=== PATIENT | male | born 1955 | race Two or more races ===

== ENCOUNTER 2021-09-07 13:20 | Outpatient (CLI) | payer MEDICARE, OTHER | END 2021-09-07 23:59 | disposition home health service (06) | LOC: WOU 13:20 | PROVIDERS: ATTEND Podiatrist Foot & Ankle Surgery | DX: S93.11 Dislocation of interphalangeal joint (principal); X58.XXXD Exposure to other specified factors, subsequent encounter; E11.22 Type 2 diabetes mellitus with diabetic chronic kidney disease; E11.42 Type 2 diabetes mellitus with diabetic polyneuropathy; I12.0 Hypertensive chronic kidney disease with stage 5 chronic kidney disease or end stage renal disease; N18.6 End stage renal disease; Z99.2 Dependence on renal dialysis; Z87.891 Personal history of nicotine dependence; R60.0 Localized edema; Z98.890 Other specified postprocedural states | CPT/HCPCS: G0463 ==

== ENCOUNTER 2021-09-20 11:53 | Outpatient (CLI) | payer MEDICARE, OTHER ==
[2021-09-20] MEDS ORDERED: GENTAMICIN 0.1% CREAM 15 GM TUBE ONE (13:08)
[2021-09-20] MEDS ORDERED: MUPIROCIN 2% CREAM 15 GM TUBE TP ONE (13:08)
== END 2021-09-20 23:59 | disposition home health service (06) ==
LOC: WOU 11:53
PROVIDERS: ATTEND Podiatrist Foot & Ankle Surgery
DX: T81.31XA Disruption of external operation (surgical) wound, not elsewhere classified, initial encounter (principal); T86.821 Skin graft (allograft) (autograft) failure; E11.22 Type 2 diabetes mellitus with diabetic chronic kidney disease; E11.42 Type 2 diabetes mellitus with diabetic polyneuropathy; I12.0 Hypertensive chronic kidney disease with stage 5 chronic kidney disease or end stage renal disease; N18.6 End stage renal disease; Z99.2 Dependence on renal dialysis; Z79.01 Long term (current) use of anticoagulants; Z79.82 Long term (current) use of aspirin
CPT/HCPCS: 11043

== ENCOUNTER 2021-10-19 13:30 | Outpatient (CLI) | payer MEDICARE, OTHER ==
[2021-10-19] MEDS ORDERED: MUPIROCIN 2% CREAM 15 GM TUBE TP ONE (14:23)
== END 2021-10-19 23:59 | disposition home health service (06) ==
LOC: WOU 13:30
PROVIDERS: ATTEND Podiatrist Foot & Ankle Surgery
DX: E11.621 Type 2 diabetes mellitus with foot ulcer (principal); L97.515 Non-pressure chronic ulcer of other part of right foot with muscle involvement without evidence of necrosis; E11.42 Type 2 diabetes mellitus with diabetic polyneuropathy; E11.22 Type 2 diabetes mellitus with diabetic chronic kidney disease; N18.6 End stage renal disease; Z99.2 Dependence on renal dialysis; T86.821 Skin graft (allograft) (autograft) failure; T81.31XA Disruption of external operation (surgical) wound, not elsewhere classified, initial encounter; Z79.01 Long term (current) use of anticoagulants; Z79.899 Other long term (current) drug therapy
CPT/HCPCS: 11042

== ENCOUNTER 2021-10-26 14:00 | Outpatient (CLI) | payer MEDICARE, OTHER ==
[2021-10-26] MEDS ORDERED: MUPIROCIN 2% CREAM 15 GM TUBE TP ONE (14:44)
[2021-10-26] MEDS ORDERED: GENTAMICIN 0.1% CREAM 15 GM TUBE ONE (14:44)
[2021-10-26 17:02] LABS: BASOPHILS # (AUTO) 0.3 K/uL (0.0-0.2); EOSINOPHILS % (AUTO) 11.2 % (0.0-6.0); HEMATOCRIT 32 % (39-51); HEMOGLOBIN 10.2 g/dL (13.5-17.5); LYMPHOCYTES # (AUTO) 1.4 K/uL (0.8-4.8); LYMPHOCYTES % (AUTO) 14.8 % (20.0-44.0); MEAN CORPUSCULAR HGB CONC 32 g/dl (31.0-36.0); MEAN CORPUSCULAR VOLUME 84 fL (80-96); MONOCYTES # (AUTO) 1.1 K/uL (0.1-1.30); MONOCYTES % (AUTO) 11.8 % (2.0-12.0); NEUTROPHILS # (AUTO) 5.5 K/uL (1.8-8.9); NEUTROPHILS % (AUTO) 59.2 % (43.0-81.0); PLATELET COUNT (AUTO) 226 K/uL (150-450); RED BLOOD CELL COUNT(AUTO) 3.75 MIL/uL (4.5-6.0); WHITE BLOOD COUNT (AUTO) 9.3 K/uL (4.3-11.0)
== END 2021-10-26 23:59 | disposition home health service (06) ==
LOC: WOU 14:00
PROVIDERS: ATTEND Podiatrist Foot & Ankle Surgery
DX: T81.31XA Disruption of external operation (surgical) wound, not elsewhere classified, initial encounter (principal); T86.821 Skin graft (allograft) (autograft) failure; E11.621 Type 2 diabetes mellitus with foot ulcer; L97.512 Non-pressure chronic ulcer of other part of right foot with fat layer exposed; E11.22 Type 2 diabetes mellitus with diabetic chronic kidney disease; E11.42 Type 2 diabetes mellitus with diabetic polyneuropathy; I12.0 Hypertensive chronic kidney disease with stage 5 chronic kidney disease or end stage renal disease; N18.6 End stage renal disease; Z99.2 Dependence on renal dialysis; Z87.891 Personal history of nicotine dependence; Z79.82 Long term (current) use of aspirin; Z79.01 Long term (current) use of anticoagulants
CPT/HCPCS: 11042; 36415; 85025-TC; 85652-TC; 86140-TC

== ENCOUNTER 2021-11-02 13:15 | Outpatient (CLI) | payer MEDICARE, OTHER ==
[2021-11-02] MEDS ORDERED: MUPIROCIN 2% CREAM 15 GM TUBE TP ONE (14:08)
[2021-11-02] MEDS ORDERED: GENTAMICIN 0.1% CREAM 15 GM TUBE ONE (14:09)
== END 2021-11-02 23:59 | disposition home health service (06) ==
LOC: WOU 13:15
PROVIDERS: ATTEND Podiatrist Foot & Ankle Surgery
DX: T81.31XA Disruption of external operation (surgical) wound, not elsewhere classified, initial encounter (principal); T86.821 Skin graft (allograft) (autograft) failure; E11.22 Type 2 diabetes mellitus with diabetic chronic kidney disease; E11.42 Type 2 diabetes mellitus with diabetic polyneuropathy; E11.621 Type 2 diabetes mellitus with foot ulcer; I12.0 Hypertensive chronic kidney disease with stage 5 chronic kidney disease or end stage renal disease; N18.6 End stage renal disease; Z99.2 Dependence on renal dialysis; Z87.891 Personal history of nicotine dependence; L97.515 Non-pressure chronic ulcer of other part of right foot with muscle involvement without evidence of necrosis; Z79.01 Long term (current) use of anticoagulants; Z79.899 Other long term (current) drug therapy
CPT/HCPCS: 11043

== ENCOUNTER 2021-11-07 10:30 | Outpatient (CLI) | payer MEDICARE, OTHER | END 2021-11-07 23:59 | disposition home or self-care (01) | LOC: RAD 10:30 | PROVIDERS: ATTEND Podiatrist Foot & Ankle Surgery | DX: M19.071 Primary osteoarthritis, right ankle and foot (principal); M86.8X7 Other osteomyelitis, ankle and foot | CPT/HCPCS: 73630-TC ==

== ENCOUNTER 2021-11-08 04:47 | Inpatient (IN) | payer MEDICARE, OTHER ==
[~2021-11-08] VITALS: Ht 167.6 cm; Wt 61.7 kg
[2021-11-08] VITALS (23 sets, daily range): BP systolic 143–218; BP diastolic 63–108
--- NOTE | 2021-11-08 05:28 | NUR ---
lab at bedside
--- NOTE | 2021-11-08 05:28 | NUR ---
ekg at bedside
--- NOTE | 2021-11-08 05:51 | NUR ---
radiology at bedside
[2021-11-08 06:01] LABS: BASOPHILS # (AUTO) 0.1 K/uL (0.0-0.2); BASOPHILS % (AUTO) 0.7 % (0.0-2.0); EOSINOPHILS % (AUTO) 0.4 % (0.0-6.0); HEMATOCRIT 29 % (39-51); HEMOGLOBIN 9.6 g/dL (13.5-17.5); LYMPHOCYTES # (AUTO) 0.5 K/uL (0.8-4.8); LYMPHOCYTES % (AUTO) 4.6 % (20.0-44.0); MEAN CORPUSCULAR HGB CONC 33 g/dl (31.0-36.0); MEAN CORPUSCULAR VOLUME 82 fL (80-96); MONOCYTES # (AUTO) 0.9 K/uL (0.1-1.30); MONOCYTES % (AUTO) 8.2 % (2.0-12.0); NEUTROPHILS # (AUTO) 9.3 K/uL (1.8-8.9); NEUTROPHILS % (AUTO) 86.1 % (43.0-81.0); PLATELET COUNT (AUTO) 334 K/uL (150-450); RED BLOOD CELL COUNT(AUTO) 3.54 MIL/uL (4.5-6.0); WHITE BLOOD COUNT (AUTO) 10.8 K/uL (4.3-11.0)
[2021-11-08 06:13] LABS: MAGNESIUM 3.1 mg/dL (1.8-2.4); PHOSPHORUS 6.6 mg/dL (2.5-4.9)
[2021-11-08 06:24] LABS: ALANINE AMINOTRANSFERASE 21 U/L (12-78); ALBUMIN 3.1 g/dL (3.4-5.0); ALKALINE PHOSPHATASE 148 U/L (46-116); ASPARTATE AMINOTRANSFERASE 17 U/L (15-37); BILIRUBIN,DIRECT 0.2 mg/dL (0.0-0.2); BILIRUBIN,TOTAL 0.5 mg/dL (0.2-1.0); CALCIUM, SERUM 8.2 mg/dL (8.5-10.1); CARBON DIOXIDE 17 mmol/L (21-32); CHLORIDE 96 mmol/L (98-107); GLUCOSE 185 mg/dL (74-106); SODIUM SERUM 132 mmol/L (136-145); TOTAL PROTEIN, SERUM 8.5 g/dL (6.4-8.2)
[2021-11-08 06:31] LABS: CREATININE 16.9 mg/dL (0.6-1.3); POTASSIUM 9.2 mmol/L (3.5-5.1); UREA NITROGEN, BLOOD 113 mg/dL (7-18)
[2021-11-08] MEDS ORDERED: CALCIUM CHLORIDE 1,000 MG/10 ML DISP.SYRIN ONE (06:37)
[2021-11-08] MEDS ORDERED: DEXTROSE 50%-WATER 50 ML DISP.SYRIN ONE ×2 (06:38→08:49)
[2021-11-08] MEDS ORDERED: SODIUM BICARBONATE SYR 50 MEQ/50 ML DISP.SYRIN ONE (06:38)
[2021-11-08] MEDS ORDERED: SODIUM POLYSTYRENE SULFONATE 15 G/60 ML BOTTLE ONE (06:39)
[2021-11-08] MEDS ORDERED: INSULIN REGULAR, HUMAN 100 UNIT/ML 10 ML VIAL ONE (06:40)
--- NOTE | 2021-11-08 06:44 | NUR ---
MRSA SWAB COLLECTED AND SENT TO LAB. PATIENT'S BELONGINGS LIST DONE.
[2021-11-08] MEDS ORDERED: SODIUM BICARBONATE SYR 50 MEQ/50 ML DISP.SYRIN IV ONE (07:00)
[2021-11-08] MEDS ORDERED: CALCIUM CHLORIDE 1,000 MG/10 ML DISP.SYRIN IV ONE (07:00)
[2021-11-08] MEDS ORDERED: DEXTROSE 50%-WATER 50 ML DISP.SYRIN IV ONE (07:00)
[2021-11-08] MEDS ORDERED: ALBUTEROL FS 2.5 MG/3 ML VIAL.NEB NEB ONE (07:00)
[2021-11-08] MEDS ORDERED: INSULIN REGULAR, HUMAN 100 UNIT/ML 10 ML VIAL IV ONE (07:00)
[2021-11-08] MEDS ORDERED: SODIUM POLYSTYRENE SULFONATE 15 G/60 ML BOTTLE PO ONE (07:00)
[2021-11-08] MEDS ORDERED: ALBUTEROL FS 2.5 MG/3 ML VIAL.NEB ONE (07:09)
[2021-11-08] MEDS: DEXTROSE 50%-WATER 50 ML DISP.SYRIN IV ONE (08:34)
[2021-11-08] MEDS ORDERED: ZOLPIDEM TARTRATE 5 MG TABLET PO PRN (09:00)
[2021-11-08] MEDS ORDERED: MAG HYDROX/AL HYDROX/SIMETH 30 ML UDC PO PRN (09:00)
[2021-11-08] MEDS ORDERED: MAGNESIUM HYDROXIDE 30 ML UDC PO PRN (09:00)
[2021-11-08] MEDS ORDERED: ONDANSETRON HCL/PF 4 MG/2 ML VIAL IVP PRN (09:00)
[2021-11-08] MEDS ORDERED: DEXTROSE 50%-WATER 50 ML DISP.SYRIN IV PRN (09:00)
[2021-11-08] MEDS: PANTOPRAZOLE 40 MG TABLET.DR PO SCH (09:00)
[2021-11-08] MEDS ORDERED: HYDROCODONE/APAP 5/325MG TABLET PO PRN (09:00)
[2021-11-08] MEDS ORDERED: MORPHINE SULFATE INJ 2 MG/ML DISP.SYRIN IV PRN (09:00)
[2021-11-08] MEDS ORDERED: Z GUARD REMEDY 4 OZ OINT TP PRN (09:00)
--- NOTE | 2021-11-08 09:02 | NUR ---
GOT ICU BED 259
--- NOTE | 2021-11-08 09:16 | NUR ---
CALLED ICU TO GIVE REPORT AND WAS TOLD TO CALL BACK AT 0930
[2021-11-08] MEDS ORDERED: VANCOMYCIN 1 GM in IV D5W 250ml IV ONE (09:30)
--- NOTE | 2021-11-08 09:30 | NUR ---
CALL FROM EVITA MATHIAS SUP, WANTS TX DELAYED UNTIL WE HEAR FROM HER
--- NOTE | 2021-11-08 09:46 | NUR ---
report give to cheng for mando
--- NOTE | 2021-11-08 10:15 | NUR ---
SENIOR GAME DESIGNER RECEIVED PT FROM ER. REPORT RECEIVED. PT AROUSEABLE, FOLLOWS SOME COMMANDS. CONFUSED. UNABLE TO STATE WHERE HE RECEIVES DIALYSIS OR WHY HE MISSED HIS APPOINTMENTS. PT UNABLE TO SIGN CONSENT FOR DIALYSIS DUE TO CONFUSION. IV SITES X 2 IN RIGHT FOREARM. SHUNT IN LEFT UPPER ARM. PT CLEANED OF STOOL AND URINE. CLOTHING EXTENSIVELY SOILED, REMOVED AND DISCARDED IN TRASHBIN. NO BELONGINGS WITH PT.
--- NOTE | 2021-11-08 12:00 | NUR ---
CREW SCHEDULER NOTE RECEIVED PT FROM CHARGE NURSE, PT IS CONFUSED, AO X 2, ON HEMODIALYSIS THIS TIME, 2L NC, SATURATION 99%. PT ON TELE MONITOR SINUS TACH 101HR, 2 HEP LOCK INTACT AND FLUSHING WELL. BS IS 87 MG\DL, NPO AT THIS TIME EXCEPT FOR MEDS, VS TAKEN, BODY ASSESSMENT DONE, CALL LIGHT WITHIN REACH, BED AT LOWEST POSITION, NO SOB NOTED THIS TIME, WILL CONTINUE TO MONITOR.
[2021-11-08] MEDS: HEPARIN SODIUM, PORCINE 5000 UNITS/1 ML VIAL SQ SCH ×2 (12:31→22:03)
[2021-11-08] MEDS ORDERED: EPOETIN ALFA (10,000 UNIT) 10,000 UNIT/ML VIAL IV ONE (13:00)
--- NOTE | 2021-11-08 13:00 | NUR ---
SOLE LAYER HAND NOTE DR LOUIS AT BEDSIDE ASKED ABOUT AND PNA VACCINE STATED NO VACCINES AT THIS TIME
[2021-11-08] MEDS: BLOOD SUGAR DIAGNOSTIC 1 EACH STRIP IN SCH ×3 (13:35→22:00)
--- NOTE | 2021-11-08 13:45 | NUR ---
PRIVATE PILOT Notes DOCTOR HIEN NOTIFIED THAT PT BP 217/97, NO ORDERS FOR BP MEDS, STATED ORDER WILL BE PLACED. HEMODIALYSIS COMPLETE, 3L IS OUT. WILL FOLLOW-UP.
[2021-11-08] MEDS: PIPERACILLIN /TAZOBACTAM 2.25 G in IV D5W 50 ML IV SCH ×2 (14:15→22:00)
[2021-11-08] MEDS ORDERED: hydrALAZINE HCL IV 20 MG VIAL IV PRN (14:30)
[2021-11-08] MEDS: AMLODIPINE BESYLATE 10 MG TABLET PO SCH (14:41)
--- NOTE | 2021-11-08 15:21 | NUR ---
RECYCLING MANAGER NOTES DOCTOR HIEN NOTIFIED, PT SINUS TACH 135 TO 150 HR, STATED THAT HE WILL PLACE ORDER FOR THE HEART RATE.
[2021-11-08 15:53] LABS: CALCIUM, SERUM 8.9 mg/dL (8.5-10.1); POTASSIUM 3.8 mmol/L (3.5-5.1)
[2021-11-08] MEDS ORDERED: LORAZEPAM INJ 2 MG/ML VIAL IV PRN (16:00)
--- NOTE | 2021-11-08 16:00 | NUR ---
SOAPING DEPARTMENT SUPERVISOR NOTES\ PATIENT HEART RATE IS 144 BPM, DR. STANFORD NOTIFIED. PATIENT CONSISTENTLY TRIES TO GET OUT OF BED PUTTING PT AT RISK FOR FALLING, ORDERED ATIVAN PRN. WILL CONTINUE TO MONITOR.
--- NOTE | 2021-11-08 16:17 | NUR ---
VIDEO PRESENTATION OPERATOR NOTE ASSITED TO BSC, ABLE TO MAKE BM , KEEP CLEAN DRY , ALL NEEDS ATTENDED, WILL CONT TO MONITOR HR AT THIS TIME 115
[2021-11-08 16:21] LABS: CREATININE 8.9 mg/dL (0.6-1.3)
[2021-11-08] MEDS: METOPROLOL TARTRATE 50 MG TABLET PO SCH ×2 (16:22→22:00)
--- NOTE | 2021-11-08 16:34 | NUR ---
agricultural engineering technicians note k 3.8 at this time creat 8.6 trending down , will cont to monitor but now noted on tele monitor afib , ordered ekg stat, rt notified
--- NOTE | 2021-11-08 16:45 | NUR ---
WALLPAPER SCRAPER NOTE NOTED ONE EPISODE OF AFIB, HR 159, NO COMPLAINTS OF CHEST PAIN, DR. STANFORD NOTIFIED. STATED WILL ORDER BMP, WILL FOLLOW-UP.
--- NOTE | 2021-11-08 18:15 | NUR ---
METAL BOX MAKER NOTE BP 185/88, DR. STANFORD NOTIFIED, NO NEW ORDERS GIVEN AT THIS TIME. WILL CONTINUE TO MONITOR.
--- NOTE | 2021-11-08 19:15 | NUR ---
SCALE OPERATORPRODUCTION MATERIAL COORDINATOR NOTE PATIENT WAS RECEIVED FROM THE ICU. A/0X3. PATIENT IS STABLE. NO S/S OF DISTRESS; BREATHING SYMMETRICAL. RT ARM #20 & #18G PATENT. LEFT ARM TO NOT BE TOUCHED FOR BLOOD DRAW OR BP. PATIENT WAS GIVEN CALL URIBE AND INSTRUCTED ON ITS USE; PATIENT WAS ORIENTED TO THE UNIT. BELONGINGS ACCOUNTED FOR AND LOGGED. SAFETY MEASURES IN PLACE: BED AT LOWEST POSITION, RAILS UP X2, CALL URIBE WITHIN REACH. WILL CONTINUE TO MONITOR PATIENT THROUGHOUT SHIFT.
--- NOTE | 2021-11-08 19:28 | NUR ---
PASTE MIXER NOTES PATIENT WAS TRANSFERRED TO TELE UNIT IN STABLE CONDITION BY ACLS PROTOCOL BY BED, MEDICATIONS, CHART AND REPORT GIVEN TO BELGICA GONSALEZ.
[2021-11-08 20:27] LABS: CALCIUM, SERUM 8.2 mg/dL (8.5-10.1); POTASSIUM 5.5 mmol/L (3.5-5.1)
[2021-11-08 22:14] LABS: CREATININE 10.1 mg/dL (0.6-1.3)
[2021-11-08] MEDS: ACETAMINOPHEN 325 MG TABLET PO PRN (23:08)
[2021-11-09] MEDS: PIPERACILLIN /TAZOBACTAM 2.25 G in IV D5W 50 ML IV SCH ×3 (05:17→21:33)
[2021-11-09] MEDS: INSULIN REGULAR, HUMAN 100 UNIT/ML 3 ML VIAL SQ PRN ×3 (06:17→22:18)
--- NOTE | 2021-11-09 06:33 | NUR ---
LABORER GOLF COURSE CLOSING NOTE PATIENT IS ASLEEP IN BED. A/OX4. NO S/S OF DISTRESS, BREATHING SYMMETRICAL. CAP REFILL <3SECS. DRY CELL AND BATTERY ASSEMBLER REPORTS SR 63. SAFETY MEASURES IN PLACE: BED AT LOWEST POSITION, RAILS UP X2, CALL URIBE WITHIN REACH. WILL ENDORSE TO NEXT SHIFT FOR MYRA.
[2021-11-09] MEDS: BLOOD SUGAR DIAGNOSTIC 1 EACH STRIP IN SCH ×4 (06:46→22:06)
[2021-11-09] MEDS ORDERED: VANCOMYCIN POST DIALYSIS 500MG IV PRN (07:00)
--- NOTE | 2021-11-09 07:47 | NUR ---
RN Note Patient received in bed, AO x 3-4, able to responds all stimuli. Respiratory even and unlabored with oxygen at 3Ls via NC, no SOB observed. Skin is warm to touch, keep clean/dry. Patient does no appears pain or discomfort this morning. BS 91mg/dl this morning also. Call light within reach, kept elevated HOB and lower bed position for safety. Will continue to monitor.
[2021-11-09 07:51] LABS: IRON, SERUM 16 ug/dl (50-175); TOTAL IRON BINDING CAPACITY 144 ug/dl (250-450)
[2021-11-09 07:57] LABS: CALCIUM, SERUM 8.2 mg/dL (8.5-10.1); MAGNESIUM 2.5 mg/dL (1.8-2.4); PHOSPHORUS 7.6 mg/dL (2.5-4.9); POTASSIUM 5.2 mmol/L (3.5-5.1)
[2021-11-09] MEDS: PANTOPRAZOLE 40 MG TABLET.DR PO SCH (07:57)
[2021-11-09 08:01] LABS: BASOPHILS # (AUTO) 0.2 K/uL (0.0-0.2); BASOPHILS % (AUTO) 2.4 % (0.0-2.0); EOSINOPHILS % (AUTO) 10.9 % (0.0-6.0); HEMATOCRIT 32 % (39-51); HEMOGLOBIN 10.7 g/dL (13.5-17.5); LYMPHOCYTES # (AUTO) 1.1 K/uL (0.8-4.8); LYMPHOCYTES % (AUTO) 15.1 % (20.0-44.0); MEAN CORPUSCULAR HGB CONC 33 g/dl (31.0-36.0); MEAN CORPUSCULAR VOLUME 82 fL (80-96); MONOCYTES % (AUTO) 12.9 % (2.0-12.0); NEUTROPHILS # (AUTO) 4.4 K/uL (1.8-8.9); NEUTROPHILS % (AUTO) 58.7 % (43.0-81.0); PLATELET COUNT (AUTO) 369 K/uL (150-450); RED BLOOD CELL COUNT(AUTO) 3.92 MIL/uL (4.5-6.0); WHITE BLOOD COUNT (AUTO) 7.5 K/uL (4.3-11.0)
[2021-11-09 08:12] VITALS: BP 155/70
[2021-11-09 08:37] LABS: CREATININE 11.4 mg/dL (0.6-1.3)
[2021-11-09] MEDS: HEPARIN SODIUM, PORCINE 5000 UNITS/1 ML VIAL SQ SCH ×2 (08:57→21:35)
[2021-11-09] MEDS: hydrALAZINE HCL 50 MG TABLET PO SCH ×3 (08:58→18:03)
[2021-11-09] MEDS: AMLODIPINE BESYLATE 10 MG TABLET PO SCH (08:58)
[2021-11-09] MEDS: METOPROLOL TARTRATE 50 MG TABLET PO SCH ×3 (08:58→21:40)
[2021-11-09 12:08] VITALS: BP 138/78
[2021-11-09] MEDS ORDERED: SOD FERRIC GLUC 125 MG in IV NS 0.9% 100 ML IV SCH (14:00)
[2021-11-09 16:17] VITALS: BP 170/79
--- NOTE | 2021-11-09 18:57 | NUR ---
RN Closing Note Patient resting in bed, AO x 3-4. Respiratory even and unlabored with oxygen at 3Ls via NC. Denies pain or discomfort. Skin is warm to touch, keep clean/dry, intact IV site on right forearm. Kept elevated HOB for ensure airway and lower position of the bed for safety. Call light within reach, all needs met. will endorse mottler operator.
--- NOTE | 2021-11-09 19:59 | NUR ---
REGIONAL CRA OPENING NOTES RECEIVED PT IN BED, AWAKE, RECEIVING HEMODIALYSIS. AOx4, ABLE TO MAKE NEEDS KNOWN. ON RA AND TOLERATING WELL. NO SOB NOTED. NO S/SX OF RESPIRATORY DISTRESS NOTED. IV ACCESS IN RFA #18. IV IS INTACT, PATENT, AND FLUSHING WELL. LFA AV SHUNT.TELE MONITOR DETECTS SINUS RHYTHM WITH RATE OF 68. SAFETY PRECAUTIONS IN PLACE: BED IN LOWEST, LOCKED POSITIONS, SIDERAILS UPx2, AND BRAKES ON. TABLE AND CALL LIGHT WITHIN REACH. WILL CONTINUE TO MONITOR.
[2021-11-09 20:00] VITALS: BP 130/56
[2021-11-09 21:26] LABS: THYROID STIMULATING HORMONE 0.597 uIU/mL (0.358-3.74)
--- NOTE | 2021-11-09 21:40 | NUR ---
DIALYSIS FINISHED. REMOVED 1.5 L PER DIALYSIS NURSE. VS STABLE.
[2021-11-10] MEDS: ACETAMINOPHEN 325 MG TABLET PO PRN (03:43)
[2021-11-10] MEDS: PIPERACILLIN /TAZOBACTAM 2.25 G in IV D5W 50 ML IV SCH (05:11)
[2021-11-10] MEDS: BLOOD SUGAR DIAGNOSTIC 1 EACH STRIP IN SCH (06:25)
--- NOTE | 2021-11-10 06:53 | NUR ---
PILLOWCASE MAKER CLOSING NOTES PT IN BED, ASLEEP, AWAKENS TO VERBAL STIMULI. AOx4, ABLE TO MAKE NEEDS KNOWN. ON RA AND TOLERATING WELL. NO SOB NOTED. NO S/SX OF RESPIRATORY DISTRESS NOTED. IV ACCESS IN RHAND #20. IV IS INTACT, PATENT, AND FLUSHING WELL. LFA AV SHUNT.TELE MONITOR DETECTS SINUS RHYTHM WITH RATE OF 68. ALL NEEDS MET. PT KEPT CLEAN AND DRY. SAFETY PRECAUTIONS IN PLACE: BED IN LOWEST, LOCKED POSITIONS, SIDERAILS UPx2, AND BRAKES ON. TABLE AND CALL LIGHT WITHIN REACH. WILL ENDORSE TO ONCOMING SHIFT FOR MYRA.
[2021-11-10 07:23] LABS: BASOPHILS # (AUTO) 0.1 K/uL (0.0-0.2); BASOPHILS % (AUTO) 1.6 % (0.0-2.0); EOSINOPHILS % (AUTO) 10.7 % (0.0-6.0); HEMATOCRIT 32 % (39-51); HEMOGLOBIN 10.7 g/dL (13.5-17.5); LYMPHOCYTES % (AUTO) 15.6 % (20.0-44.0); MEAN CORPUSCULAR HGB CONC 33 g/dl (31.0-36.0); MEAN CORPUSCULAR VOLUME 82 fL (80-96); NEUTROPHILS # (AUTO) 3.7 K/uL (1.8-8.9); NEUTROPHILS % (AUTO) 57.1 % (43.0-81.0); PLATELET COUNT (AUTO) 372 K/uL (150-450); RED BLOOD CELL COUNT(AUTO) 3.93 MIL/uL (4.5-6.0); WHITE BLOOD COUNT (AUTO) 6.4 K/uL (4.3-11.0)
--- NOTE | 2021-11-10 07:49 | NUR ---
RESEARCH NURSE OPENING NOTE Patient in bed, awake. A/O x 4, able to make needs known. On room air, breathing evenly and unlabored. No SOB or s/s of distress noted. IV access on Right hand #20G, SL intact and patent. LFA AV shunt present. On tele monitoring showing SR, HR on the 60's. Safety measures in place: bed inlow, locked position; siderails up x 2; call light within reach. Will continue to monitor.
[2021-11-10 08:00] VITALS: BP_SYST 116; BP_SYST 143; BP_DIAS 72; BP_DIAS 74
[2021-11-10 08:49] LABS: CALCIUM, SERUM 8.4 mg/dL (8.5-10.1); MAGNESIUM 2.2 mg/dL (1.8-2.4); PHOSPHORUS 6.9 mg/dL (2.5-4.9); POTASSIUM 4.4 mmol/L (3.5-5.1)
[2021-11-10] MEDS: PANTOPRAZOLE 40 MG TABLET.DR PO SCH (09:19)
[2021-11-10] MEDS: hydrALAZINE HCL 50 MG TABLET PO SCH (09:20)
[2021-11-10] MEDS: METOPROLOL TARTRATE 50 MG TABLET PO SCH (09:20)
[2021-11-10 09:21] VITALS: BP 143/74
[2021-11-10] MEDS: AMLODIPINE BESYLATE 10 MG TABLET PO SCH (09:21)
[2021-11-10] MEDS: HEPARIN SODIUM, PORCINE 5000 UNITS/1 ML VIAL SQ SCH (09:21)
[2021-11-10 09:48] LABS: CREATININE 8.9 mg/dL (0.6-1.3)
--- NOTE | 2021-11-10 10:19 | NUR ---
WOUND CARE CONSULT: PT PRESENTS WITH FOOT WOUNDS, PRESENT ON ADMISSION. DR KAMARA NOTIFIED. IN AGREEMENT WITH PLAN OF CARE.
--- NOTE | 2021-11-10 12:00 | NUR ---
DISCHARGE NOTE Received order for discharge. Patient is A/O x 4, able to make needs known. Patient is stable on room air, breathing evenly and unlabored. No SOB or s/s of distress noted. Patient denies any pain or discomfort at this time. Patient was given discharge instructions both verbally and in written form, verbalized understanding. Patient belongings accounted for, belonging sheet signed. Photos taken on Right plantar foot wound and on Left heel scab. Patient refused photo to be taken on sacral redness. IV access removed, catheter tip intact; pressure dressing applied, no signs of bleeding noted. ID band removed. Patient left in stable condition via private car with family.
== END 2021-11-10 12:00 | disposition home or self-care (01) | DRG 871 ==
LOC: ER 04:50 → ICU 09:10 → MED 19:06 → TELE 19:53
PROVIDERS: ADMIT Nurse Practitioner Acute Care; ATTEND Nurse Practitioner Acute Care
PROC: 5A1D70Z Performance of Urinary Filtration, Intermittent, Less than 6 Hours Per Day (ICD-10-PCS; principal; 2021-11-08)
DX: A41.9 Sepsis, unspecified organism (principal); J15.9 Unspecified bacterial pneumonia; N18.6 End stage renal disease; E44.0 Moderate protein-calorie malnutrition; I12.0 Hypertensive chronic kidney disease with stage 5 chronic kidney disease or end stage renal disease; E87.1 Hypo-osmolality and hyponatremia; J90 Pleural effusion, not elsewhere classified; J98.11 Atelectasis; E11.22 Type 2 diabetes mellitus with diabetic chronic kidney disease; I16.0 Hypertensive urgency; E11.65 Type 2 diabetes mellitus with hyperglycemia; Z20.822 Contact with and (suspected) exposure to COVID-19; Z99.2 Dependence on renal dialysis; E87.5 Hyperkalemia; D63.8 Anemia in other chronic diseases classified elsewhere; Z91.19 Patient's noncompliance with other medical treatment and regimen; Z82.49 Family history of ischemic heart disease and other diseases of the circulatory system; Z83.3 Family history of diabetes mellitus
CPT/HCPCS: 36415; 71045-TC; 73630-TC; 80048-TC; 80076-TC; 80202-TC; 82962-TC; 83540-TC; 83605-TC; 83735-TC; 83880; 84100-TC; 84443-TC; 84484-TC; 85025-TC; 85730-TC; 86706; 87040-TC; 87081-TC; 87340; 90935-TC; 93307-TC; 97116-TC; 97530-TC; C9803; G0378; J0360; J0885; J1644; J1815; J2543; J2916; J3370; J3490; J7030; J7050; J7060

== ENCOUNTER 2021-11-16 13:00 | Outpatient (CLI) | payer MEDICARE, OTHER | END 2021-11-16 23:59 | disposition home health service (06) | LOC: WOU 13:00 | PROVIDERS: ATTEND Podiatrist Foot & Ankle Surgery | DX: T81.31XA Disruption of external operation (surgical) wound, not elsewhere classified, initial encounter (principal); T86.821 Skin graft (allograft) (autograft) failure; E11.22 Type 2 diabetes mellitus with diabetic chronic kidney disease; E11.42 Type 2 diabetes mellitus with diabetic polyneuropathy; I12.0 Hypertensive chronic kidney disease with stage 5 chronic kidney disease or end stage renal disease; N18.6 End stage renal disease; Z99.2 Dependence on renal dialysis; Z87.891 Personal history of nicotine dependence; Z79.01 Long term (current) use of anticoagulants; Z79.82 Long term (current) use of aspirin | CPT/HCPCS: 11043 ==

== ENCOUNTER 2021-11-23 12:50 | Outpatient (CLI) | payer MEDICARE, OTHER ==
[2021-11-23] MEDS ORDERED: GENTAMICIN 0.1% CREAM 15 GM TUBE ONE (13:40)
[2021-11-23] MEDS ORDERED: MUPIROCIN 2% CREAM 15 GM TUBE TP ONE (13:40)
== END 2021-11-23 23:59 | disposition home health service (06) ==
LOC: WOU 12:50
PROVIDERS: ATTEND Podiatrist Foot & Ankle Surgery
DX: T81.31XA Disruption of external operation (surgical) wound, not elsewhere classified, initial encounter (principal); T86.821 Skin graft (allograft) (autograft) failure; E11.22 Type 2 diabetes mellitus with diabetic chronic kidney disease; E11.42 Type 2 diabetes mellitus with diabetic polyneuropathy; I12.0 Hypertensive chronic kidney disease with stage 5 chronic kidney disease or end stage renal disease; N18.6 End stage renal disease; Z99.2 Dependence on renal dialysis; Z87.891 Personal history of nicotine dependence; Z79.82 Long term (current) use of aspirin; Z79.01 Long term (current) use of anticoagulants
CPT/HCPCS: 11043

== ENCOUNTER 2021-11-30 13:35 | Outpatient (CLI) | payer MEDICARE, OTHER ==
[2021-11-30] MEDS ORDERED: GENTAMICIN 0.1% CREAM 15 GM TUBE ONE (14:40)
== END 2021-11-30 23:59 | disposition home health service (06) ==
LOC: WOU 13:35
PROVIDERS: ATTEND Podiatrist Foot & Ankle Surgery
DX: T81.31XA Disruption of external operation (surgical) wound, not elsewhere classified, initial encounter (principal); T86.821 Skin graft (allograft) (autograft) failure; E11.42 Type 2 diabetes mellitus with diabetic polyneuropathy; E11.22 Type 2 diabetes mellitus with diabetic chronic kidney disease; I12.0 Hypertensive chronic kidney disease with stage 5 chronic kidney disease or end stage renal disease; N18.6 End stage renal disease; Z99.2 Dependence on renal dialysis; Z87.891 Personal history of nicotine dependence; Z79.01 Long term (current) use of anticoagulants; Z79.899 Other long term (current) drug therapy
CPT/HCPCS: 11042

== ENCOUNTER 2021-12-07 13:30 | Outpatient (CLI) | payer MEDICARE, OTHER | END 2021-12-07 23:59 | disposition home health service (06) | LOC: WOU 13:30 | PROVIDERS: ATTEND Podiatrist Foot & Ankle Surgery | DX: T81.31XA Disruption of external operation (surgical) wound, not elsewhere classified, initial encounter (principal); T86.821 Skin graft (allograft) (autograft) failure; E11.22 Type 2 diabetes mellitus with diabetic chronic kidney disease; E11.42 Type 2 diabetes mellitus with diabetic polyneuropathy; I12.0 Hypertensive chronic kidney disease with stage 5 chronic kidney disease or end stage renal disease; N18.6 End stage renal disease; Z99.2 Dependence on renal dialysis; Z87.891 Personal history of nicotine dependence; Z79.01 Long term (current) use of anticoagulants; Z79.82 Long term (current) use of aspirin; R60.0 Localized edema | CPT/HCPCS: 11043; 87070-TC; 87075-TC; 87186-TC ==

== ENCOUNTER 2021-12-21 12:45 | Outpatient (CLI) | payer MEDICARE, OTHER | END 2021-12-21 23:59 | disposition home health service (06) | LOC: WOU 12:45 | PROVIDERS: ATTEND Podiatrist Foot & Ankle Surgery | DX: E11.621 Type 2 diabetes mellitus with foot ulcer (principal); L97.516 Non-pressure chronic ulcer of other part of right foot with bone involvement without evidence of necrosis; E11.22 Type 2 diabetes mellitus with diabetic chronic kidney disease; E11.42 Type 2 diabetes mellitus with diabetic polyneuropathy; I12.0 Hypertensive chronic kidney disease with stage 5 chronic kidney disease or end stage renal disease; N18.6 End stage renal disease; Z99.2 Dependence on renal dialysis; Z87.891 Personal history of nicotine dependence; Z79.01 Long term (current) use of anticoagulants; Z79.899 Other long term (current) drug therapy; Z79.82 Long term (current) use of aspirin; T86.821 Skin graft (allograft) (autograft) failure; R60.0 Localized edema | CPT/HCPCS: 11043 ==

== ENCOUNTER 2022-01-04 13:15 | Outpatient (CLI) | payer MEDICARE, OTHER ==
[2022-01-04 15:02] LABS: BASOPHILS # (AUTO) 0.2 K/uL (0.0-0.2); BASOPHILS % (AUTO) 1.9 % (0.0-2.0); EOSINOPHILS % (AUTO) 6.3 % (0.0-6.0); HEMATOCRIT 35 % (39-51); HEMOGLOBIN 11.5 g/dL (13.5-17.5); MEAN CORPUSCULAR HGB CONC 33 g/dl (31.0-36.0); MEAN CORPUSCULAR VOLUME 80 fL (80-96); MONOCYTES % (AUTO) 11.3 % (2.0-12.0); NEUTROPHILS # (AUTO) 5.8 K/uL (1.8-8.9); NEUTROPHILS % (AUTO) 68.5 % (43.0-81.0); PLATELET COUNT (AUTO) 429 K/uL (150-450); RED BLOOD CELL COUNT(AUTO) 4.44 MIL/uL (4.5-6.0); WHITE BLOOD COUNT (AUTO) 8.4 K/uL (4.3-11.0)
== END 2022-01-04 23:59 | disposition home health service (06) ==
LOC: WOU 13:15
PROVIDERS: ATTEND Podiatrist Foot & Ankle Surgery
DX: E11.621 Type 2 diabetes mellitus with foot ulcer (principal); L97.513 Non-pressure chronic ulcer of other part of right foot with necrosis of muscle; E11.22 Type 2 diabetes mellitus with diabetic chronic kidney disease; E11.42 Type 2 diabetes mellitus with diabetic polyneuropathy; I12.0 Hypertensive chronic kidney disease with stage 5 chronic kidney disease or end stage renal disease; N18.6 End stage renal disease; Z99.2 Dependence on renal dialysis; Z87.891 Personal history of nicotine dependence; T86.821 Skin graft (allograft) (autograft) failure; T81.31XD Disruption of external operation (surgical) wound, not elsewhere classified, subsequent encounter; R60.0 Localized edema; Z79.01 Long term (current) use of anticoagulants; Z79.899 Other long term (current) drug therapy; Z79.82 Long term (current) use of aspirin
CPT/HCPCS: 11043; 36415; 85025-TC; 85652-TC; 86140-TC

== ENCOUNTER 2022-01-11 13:05 | Outpatient (CLI) | payer MEDICARE, OTHER | END 2022-01-11 23:59 | disposition home or self-care (01) | LOC: WOU 13:05 | PROVIDERS: ATTEND Podiatrist Foot & Ankle Surgery | DX: T81.31XD Disruption of external operation (surgical) wound, not elsewhere classified, subsequent encounter (principal); T86.821 Skin graft (allograft) (autograft) failure; E11.22 Type 2 diabetes mellitus with diabetic chronic kidney disease; E11.42 Type 2 diabetes mellitus with diabetic polyneuropathy; I12.0 Hypertensive chronic kidney disease with stage 5 chronic kidney disease or end stage renal disease; N18.6 End stage renal disease; Z99.2 Dependence on renal dialysis; Z87.891 Personal history of nicotine dependence; Z79.01 Long term (current) use of anticoagulants; Z79.899 Other long term (current) drug therapy; Z79.82 Long term (current) use of aspirin | CPT/HCPCS: G0463 ==

== ENCOUNTER → 2022-01-20 | Outpatient (CLI) | payer MEDICARE, OTHER ==
[~2022-01-20] MED LIST: CADEXOMER IODINE UD 5 GM TUBE ONE
== END | disposition home or self-care (01) ==
LOC: WOU 09:50
PROVIDERS: ATTEND Podiatrist Foot & Ankle Surgery
DX: T81.31XA Disruption of external operation (surgical) wound, not elsewhere classified, initial encounter (principal); T86.821 Skin graft (allograft) (autograft) failure; E11.42 Type 2 diabetes mellitus with diabetic polyneuropathy; E11.22 Type 2 diabetes mellitus with diabetic chronic kidney disease; I12.0 Hypertensive chronic kidney disease with stage 5 chronic kidney disease or end stage renal disease; N18.6 End stage renal disease; Z99.2 Dependence on renal dialysis; Z87.891 Personal history of nicotine dependence; Z79.01 Long term (current) use of anticoagulants; Z79.82 Long term (current) use of aspirin
CPT/HCPCS: 11042

== ENCOUNTER 2022-01-25 09:20 | Outpatient (CLI) | payer MEDICARE, OTHER ==
[2022-01-25] MEDS ORDERED: CADEXOMER IODINE UD 5 GM TUBE ONE (09:34)
== END 2022-01-25 23:59 | disposition home or self-care (01) ==
LOC: WOU 09:20
PROVIDERS: ATTEND Specialist
DX: T81.83XD Persistent postprocedural fistula, subsequent encounter (principal); T86.821 Skin graft (allograft) (autograft) failure; E11.22 Type 2 diabetes mellitus with diabetic chronic kidney disease; E11.42 Type 2 diabetes mellitus with diabetic polyneuropathy; I12.0 Hypertensive chronic kidney disease with stage 5 chronic kidney disease or end stage renal disease; N18.6 End stage renal disease; Z99.2 Dependence on renal dialysis; Z87.891 Personal history of nicotine dependence; R60.0 Localized edema; Z79.01 Long term (current) use of anticoagulants
CPT/HCPCS: 82962; G0463

== ENCOUNTER → 2022-01-27 | Outpatient (CLI) | payer MEDICARE, OTHER | END | disposition home or self-care (01) | LOC: WOU 09:35 | PROVIDERS: ATTEND Podiatrist Foot & Ankle Surgery | DX: E11.621 Type 2 diabetes mellitus with foot ulcer (principal); L97.515 Non-pressure chronic ulcer of other part of right foot with muscle involvement without evidence of necrosis; T86.821 Skin graft (allograft) (autograft) failure; T81.31XA Disruption of external operation (surgical) wound, not elsewhere classified, initial encounter; E11.22 Type 2 diabetes mellitus with diabetic chronic kidney disease; E11.42 Type 2 diabetes mellitus with diabetic polyneuropathy; I12.0 Hypertensive chronic kidney disease with stage 5 chronic kidney disease or end stage renal disease; N18.6 End stage renal disease; Z99.2 Dependence on renal dialysis; Z87.891 Personal history of nicotine dependence; Z79.84 Long term (current) use of oral hypoglycemic drugs; Z79.01 Long term (current) use of anticoagulants; Z79.899 Other long term (current) drug therapy | CPT/HCPCS: 11043 ==

== ENCOUNTER → 2022-01-27 | Outpatient (CLI) | payer MEDICARE, OTHER | END | disposition home or self-care (01) | LOC: MRI 10:45 | PROVIDERS: ATTEND Podiatrist Foot & Ankle Surgery | DX: Z75.3 Unavailability and inaccessibility of health-care facilities (principal) ==

== ENCOUNTER 2022-02-10 10:55 | Outpatient (CLI) | payer MEDICARE, OTHER ==
[2022-02-10] MEDS ORDERED: LIDOCAINE SOLN 4% 50 ML BOTTLE ONE (11:21)
[2022-02-10] MEDS ORDERED: SILVER NITRATE APPLICATOR 1 EA BOX ONE (11:41)
== END 2022-02-10 23:59 | disposition home or self-care (01) ==
LOC: WOU 10:55
PROVIDERS: ATTEND Podiatrist Foot & Ankle Surgery
DX: T81.31XA Disruption of external operation (surgical) wound, not elsewhere classified, initial encounter (principal); L97.525 Non-pressure chronic ulcer of other part of left foot with muscle involvement without evidence of necrosis; T86.821 Skin graft (allograft) (autograft) failure; E11.22 Type 2 diabetes mellitus with diabetic chronic kidney disease; E11.42 Type 2 diabetes mellitus with diabetic polyneuropathy; E11.69 Type 2 diabetes mellitus with other specified complication; I12.0 Hypertensive chronic kidney disease with stage 5 chronic kidney disease or end stage renal disease; M86.671 Other chronic osteomyelitis, right ankle and foot; N18.6 End stage renal disease; Z99.2 Dependence on renal dialysis; Z87.891 Personal history of nicotine dependence; Z79.84 Long term (current) use of oral hypoglycemic drugs; Z79.01 Long term (current) use of anticoagulants; Z79.82 Long term (current) use of aspirin
CPT/HCPCS: 11043; A6209

== ENCOUNTER 2022-02-18 13:28 | Inpatient (IN) | payer MEDICARE, OTHER ==
[~2022-02-18] VITALS: Ht 182.9 cm; Wt 70.8 kg
[2022-02-18] MEDS ORDERED: AMLO-213 PO (14:19)
[2022-02-18] MEDS ORDERED: HYDR100T27 PO (14:19)
[2022-02-18] MEDS ORDERED: GABA-532 PO (14:19)
[2022-02-18] MEDS ORDERED: SEVE800T8 MT (14:19)
[2022-02-18] MEDS ORDERED: METO50TA16 PO (14:19)
[2022-02-18] MEDS ORDERED: LORA-259 PO (14:19)
[2022-02-18] MEDS ORDERED: SITA50TA PO (14:19)
--- NOTE | 2022-02-18 14:27 | NUR ---
MOVE SHEET SUBMITTED AND CALLED FOR TELE BED.
[2022-02-18 14:57] LABS: BASOPHILS # (AUTO) 0.1 K/uL (0.0-0.2); BASOPHILS % (AUTO) 2.6 % (0.0-2.0); EOSINOPHILS % (AUTO) 6.1 % (0.0-6.0); LYMPHOCYTES # (AUTO) 0.7 K/uL (0.8-4.8); LYMPHOCYTES % (AUTO) 12.2 % (20.0-44.0); MEAN CORPUSCULAR HGB CONC 34 g/dl (31.0-36.0); MEAN CORPUSCULAR VOLUME 84 fL (80-96); MONOCYTES # (AUTO) 0.7 K/uL (0.1-1.30); MONOCYTES % (AUTO) 11.8 % (2.0-12.0); NEUTROPHILS # (AUTO) 3.8 K/uL (1.8-8.9); NEUTROPHILS % (AUTO) 67.3 % (43.0-81.0); PLATELET COUNT (AUTO) 274 K/uL (150-450); RED BLOOD CELL COUNT(AUTO) 2.18 MIL/uL (4.5-6.0); WHITE BLOOD COUNT (AUTO) 5.6 K/uL (4.3-11.0)
[2022-02-18 15:01] LABS: HEMOGLOBIN 6.2 g/dL (13.5-17.5)
[2022-02-18 15:02] LABS: HEMATOCRIT 18 % (39-51)
[2022-02-18 15:14] LABS: CALCIUM, SERUM 9.4 mg/dL (8.5-10.1); CREATININE 4.7 mg/dL (0.6-1.3); POTASSIUM 4.4 mmol/L (3.5-5.1)
[2022-02-18 15:28] LABS: ALBUMIN 3.1 g/dL (3.4-5.0); BILIRUBIN,DIRECT 0.2 mg/dL (0.0-0.2); BILIRUBIN,TOTAL 0.5 mg/dL (0.2-1.0); TOTAL PROTEIN, SERUM 8.3 g/dL (6.4-8.2)
[2022-02-18 15:36] LABS: EOSINOPHILS % (MANUAL) 6 % (0-4); LYMPHOCYTES % (MANUAL) 15 % (16-48); MONOCYTES % (MANUAL) 14 % (0-11.0); NEUTROPHILS % (MANUAL) 65 (42-76)
--- NOTE | 2022-02-18 15:38 | NUR ---
LAB OF HEMOGLOBIN IS 6.2 AT THIS TIME
[2022-02-18] MEDS ORDERED: MAGNESIUM HYDROXIDE 30 ML UDC PO PRN (16:00)
[2022-02-18] MEDS ORDERED: DEXTROSE 50%-WATER 50 ML DISP.SYRIN IV PRN ×2 (16:00→16:30)
[2022-02-18] MEDS ORDERED: TEMAZEPAM 15 MG CAPSULE PO PRN (16:00)
[2022-02-18] MEDS ORDERED: MAG HYDROX/AL HYDROX/SIMETH 30 ML UDC PO PRN (16:00)
[2022-02-18] MEDS ORDERED: Z GUARD REMEDY 4 OZ OINT TP PRN (16:00)
[2022-02-18] MEDS ORDERED: ONDANSETRON HCL/PF 4 MG/2 ML VIAL IVP PRN (16:00)
[2022-02-18] MEDS ORDERED: ACETAMINOPHEN 325 MG TABLET PO PRN (16:00)
[2022-02-18] MEDS ORDERED: INSULIN REGULAR, HUMAN 100 UNIT/ML 3 ML VIAL SQ PRN (16:00)
--- NOTE | 2022-02-18 17:22 | NUR ---
CALLED LAB FOR COVID RESULT.
[2022-02-18] MEDS ORDERED: BLOOD SUGAR DIAGNOSTIC 1 EACH STRIP IN SCH (17:30)
--- NOTE | 2022-02-18 18:53 | NUR ---
BED 120 PER NURSING SUP.
[2022-02-18] MEDS ORDERED: EPOETIN ALFA-EPBX 10,000 UNIT/ML VIAL IV ONE (19:00)
--- NOTE | 2022-02-18 19:45 | NUR ---
report given to RN for mando
--- NOTE | 2022-02-18 21:17 | NUR ---
patient transported via ACLS protocol in stable condition
[2022-02-18 21:43] VITALS: BP 163/70
[2022-02-18] MEDS: BLOOD SUGAR DIAGNOSTIC 1 EACH STRIP IN SCH (22:00)
[2022-02-18 22:59] VITALS: BP 174/70
[2022-02-18] MEDS: PANTOPRAZOLE 40 MG VIAL IV SCH (23:05)
[2022-02-18] MEDS: hydrALAZINE HCL 50 MG TABLET PO SCH (23:09)
[2022-02-18] MEDS: SEVELAMER CARBONATE 800 MG TABLET PO SCH (23:09)
[2022-02-18] MEDS: LORAZEPAM 1 MG TABLET PO PRN (23:10)
[2022-02-18] MEDS: GABAPENTIN 100 MG CAPSULE PO SCH (23:10)
[2022-02-18] MEDS: METOPROLOL TARTRATE 50 MG TABLET PO SCH (23:19)
[2022-02-18 23:30] VITALS: BP 171/75
[2022-02-19] VITALS (9 sets, daily range): BP systolic 143–173; BP diastolic 66–74
[2022-02-19] MEDS: INSULIN REGULAR, HUMAN 100 UNIT/ML 3 ML VIAL SQ PRN ×5 (01:00→21:54)
--- NOTE | 2022-02-19 03:47 | NUR ---
SUNSHINE michelle Admitted a 67 year male via stretcher from ER with diagnosis of severe anemia. Transferred to bed safely and comfortably. Skin check done. Noted with incision on right plantar foot. No bleading noted. Transfused 1 pack of RBC. Noted that red wrist band does not match the computer verification. Spoke with Dony (Scenic Arts Supervisor) and advised to just override it. Relayed to Nina and said it is ok to override;. Noted and carried out. Alert and oriented, verbally able to communicate needs. Speaks in hebrew and indonesian fluently. No complaint of pain or discomfort. Requested ativan 1mg and sleeping pills, meds with help. Refused dialysis. Explained risk and benefits, still refused. Patient said he just got dialysis this morning. Vital signs wnl. Kept clean and dry. Will endorse to next shift for continuity of care.
[2022-02-19 07:26] LABS: BASOPHILS # (AUTO) 0.1 K/uL (0.0-0.2); BASOPHILS % (AUTO) 1.9 % (0.0-2.0); EOSINOPHILS % (AUTO) 5.8 % (0.0-6.0); HEMATOCRIT 21 % (39-51); LYMPHOCYTES # (AUTO) 0.8 K/uL (0.8-4.8); LYMPHOCYTES % (AUTO) 11.6 % (20.0-44.0); MEAN CORPUSCULAR HGB CONC 33 g/dl (31.0-36.0); MEAN CORPUSCULAR VOLUME 84 fL (80-96); MONOCYTES # (AUTO) 0.7 K/uL (0.1-1.30); MONOCYTES % (AUTO) 10.4 % (2.0-12.0); NEUTROPHILS % (AUTO) 70.3 % (43.0-81.0); PLATELET COUNT (AUTO) 258 K/uL (150-450); WHITE BLOOD COUNT (AUTO) 7.1 K/uL (4.3-11.0)
--- NOTE | 2022-02-19 08:04 | NUR ---
RN OPENING NOTES RECEIVED PATIENT FROM OUTGOING NURSE FOR CONTINUITY OF CARE. PATIENT IS DIALYSIS PATIENT. PATIENT IN BED, AO X 4, IN NO S/SX OF ACUTE DISTRESS AT THIS TIME. PATIENT ON ROOM AIR, IV SITE AT RFA 22G,SHUNT LA. PATENT AND FLUSHING WELL, NO S/S OF INFECTION OR INFILTRATION. SAFETY MEASURES IMPLEMENTED. PATIENT HEAD OF BED ELEVATED. BED IS LOCKED, IN LOWEST POSITION AND SIDE RAILS UP. CALL LIGHT WITHIN REACH OF THE PATIENT. WILL CONTINUE TO MONITOR AND REASSESS FOR ANY CHANGES.
[2022-02-19] MEDS: BLOOD SUGAR DIAGNOSTIC 1 EACH STRIP IN SCH ×4 (08:29→21:51)
[2022-02-19 08:39] LABS: CALCIUM, SERUM 9.3 mg/dL (8.5-10.1); CREATININE 6.7 mg/dL (0.6-1.3); MAGNESIUM 2.3 mg/dL (1.8-2.4); PHOSPHORUS 4.9 mg/dL (2.5-4.9)
[2022-02-19] MEDS: GABAPENTIN 100 MG CAPSULE PO SCH ×3 (08:44→16:52)
[2022-02-19] MEDS: METOPROLOL TARTRATE 50 MG TABLET PO SCH ×2 (08:44→16:55)
[2022-02-19] MEDS: PANTOPRAZOLE 40 MG VIAL IV SCH ×2 (08:44→20:10)
[2022-02-19] MEDS: SEVELAMER CARBONATE 800 MG TABLET PO SCH ×3 (08:45→18:51)
[2022-02-19] MEDS: hydrALAZINE HCL 50 MG TABLET PO SCH ×2 (08:45→16:55)
[2022-02-19] MEDS: AMLODIPINE BESYLATE 10 MG TABLET PO SCH (08:45)
--- NOTE | 2022-02-19 10:53 | NUR ---
had call from radiology @ 1050 that patient will have Angiogram tomorrow morning because there is no tech lab today. IV 18-20 AC line be available and kristine consent.
--- NOTE | 2022-02-19 19:07 | NUR ---
RN CLOSING NOTES: PATIENT AWAKE IN BED, A&O X 4, ABLE TO MAKE NEEDS KNOWN, NO COMPLAINTS OF PAIN AND DISCOMFORT AT THIS TIME, ON O2 INHALATION AT 2LPM SATURATING 97%, IV LINE AT RIGHT HAND , NO S/SX OF DISTRESS NOTED AT THIS TIME. SAFETY PRECAUTIONS IN PLACE: BED ON LOWEST LOCKED POSITION, SIDE RAILS UP X2, CALL LIGHT WITHIN EASY REACH. ALL NEEDS ATTENDED AND MET. DUE MEDS GIVEN ORDERED. WILL ENDORSE TO ONCOMING SHIFT FOR MYRA.
[2022-02-19] MEDS: LORAZEPAM 1 MG TABLET PO PRN (21:44)
[2022-02-20 04:00] VITALS: BP 111/72
--- NOTE | 2022-02-20 06:24 | NUR ---
RN CLOSING NOTES Patient is A&Ox4 awake in bed at this time. Patient verbalizes that he feels so good he could dance. Tolerated blood transfusion well last night. RFA #22G and R wrist #20G IV still intact and patent. No signs of distress.
[2022-02-20 06:43] LABS: BASOPHILS # (AUTO) 0.2 K/uL (0.0-0.2); BASOPHILS % (AUTO) 1.7 % (0.0-2.0); EOSINOPHILS % (AUTO) 3.8 % (0.0-6.0); HEMATOCRIT 24 % (39-51); LYMPHOCYTES # (AUTO) 0.8 K/uL (0.8-4.8); LYMPHOCYTES % (AUTO) 8.1 % (20.0-44.0); MEAN CORPUSCULAR HGB CONC 34 g/dl (31.0-36.0); MEAN CORPUSCULAR VOLUME 83 fL (80-96); MONOCYTES % (AUTO) 10.7 % (2.0-12.0); NEUTROPHILS # (AUTO) 7.1 K/uL (1.8-8.9); NEUTROPHILS % (AUTO) 75.7 % (43.0-81.0); PLATELET COUNT (AUTO) 251 K/uL (150-450); RED BLOOD CELL COUNT(AUTO) 2.85 MIL/uL (4.5-6.0); WHITE BLOOD COUNT (AUTO) 9.4 K/uL (4.3-11.0)
[2022-02-20 07:06] LABS: CREATININE 9.3 mg/dL (0.6-1.3)
--- NOTE | 2022-02-20 07:56 | NUR ---
RN OPENING NOTES RECEIVED PATIENT FROM OUTGOING NURSE FOR CONTINUITY OF CARE. PATIENT IN BED, AO X 4, IN NO S/SX OF ACUTE DISTRESS AT THIS TIME. ON 2 LITER NC, SATURATION AT 100%, IV SITE AT RIGHT FOREARM 22G, R WRIST 20 ALCIRA AND AV SHUNT AT LEFT ARM PATENT AND FLUSHING WELL, NO S/S OF INFECTION OR INFILTRATION. SAFETY MEASURES IMPLEMENTED. PATIENT BED ALARM IS ON. HEAD OF BED ELEVATED. BED IS LOCKED, IN LOWEST POSITION AND SIDE RAILS UP. CALL LIGHT WITHIN REACH OF THE PATIENT. WILL CONTINUE TO MONITOR AND REASSESS FOR ANY CHANGES.
[2022-02-20] MEDS: BLOOD SUGAR DIAGNOSTIC 1 EACH STRIP IN SCH ×2 (08:35→12:13)
[2022-02-20] MEDS: INSULIN REGULAR, HUMAN 100 UNIT/ML 3 ML VIAL SQ PRN ×2 (08:38→12:18)
[2022-02-20] MEDS: PANTOPRAZOLE 40 MG VIAL IV SCH (08:43)
[2022-02-20] MEDS: AMLODIPINE BESYLATE 10 MG TABLET PO SCH (08:45)
[2022-02-20] MEDS: SEVELAMER CARBONATE 800 MG TABLET PO SCH ×2 (08:46→12:20)
[2022-02-20] MEDS: METOPROLOL TARTRATE 50 MG TABLET PO SCH (08:46)
[2022-02-20] MEDS: GABAPENTIN 100 MG CAPSULE PO SCH ×2 (08:46→12:20)
[2022-02-20] MEDS: hydrALAZINE HCL 50 MG TABLET PO SCH (08:46)
[2022-02-20 12:00] VITALS: BP 154/63
[2022-02-20] MEDS ORDERED: EPOETIN ALFA (20,000 UNIT) 20,000 UNIT/ML VIAL SQ ONE (12:00)
[2022-02-20] MEDS ORDERED: PANT40TA2 PO (12:01)
--- NOTE | 2022-02-20 15:15 | NUR ---
Discharge note Patient given written and verbal discharge instructions. Patient verbalizes understanding of instructions. Patient is ambulatory with steady gait. Patient ID band and IV's removed. Patient companied with his sister to go home.
== END 2022-02-20 14:10 | disposition home or self-care (01) | DRG 377 ==
LOC: ER 13:41 → TRANSITION 18:28 → TELE1 19:32 → MEDSG1 20:43
PROVIDERS: ADMIT Nurse Practitioner Acute Care; ATTEND Nurse Practitioner Acute Care
PROC: 30233N1 Transfusion of Nonautologous Red Blood Cells into Peripheral Vein, Percutaneous Approach (ICD-10-PCS; principal; 2022-02-18)
PROC: 5A1D70Z Performance of Urinary Filtration, Intermittent, Less than 6 Hours Per Day (ICD-10-PCS; 2022-02-18)
PROC: 30233N1 Transfusion of Nonautologous Red Blood Cells into Peripheral Vein, Percutaneous Approach (ICD-10-PCS; 2022-02-18)
DX: K92.2 Gastrointestinal hemorrhage, unspecified (principal); N18.6 End stage renal disease; I12.0 Hypertensive chronic kidney disease with stage 5 chronic kidney disease or end stage renal disease; D64.9 Anemia, unspecified; Z99.2 Dependence on renal dialysis; Z20.822 Contact with and (suspected) exposure to COVID-19; E11.22 Type 2 diabetes mellitus with diabetic chronic kidney disease; Z79.899 Other long term (current) drug therapy; Z79.84 Long term (current) use of oral hypoglycemic drugs; S91.301A Unspecified open wound, right foot, initial encounter; X58.XXXA Exposure to other specified factors, initial encounter; Y92.9 Unspecified place or not applicable
CPT/HCPCS: 36415; 71045-TC; 80048-TC; 80076-TC; 82962-TC; 83735-TC; 84100-TC; 85025-TC; 85730-TC; 86706; 86850-TC; 87081-TC; 87340; A6403; C9113; G0378; J0885; J1815; J7040; J7050; P9016

== ENCOUNTER 2022-02-22 10:36 | Outpatient (CLI) | payer MEDICARE, OTHER ==
[~2022-02-22 10:36] MED LIST changes: +AMLO-213 PO; -CADEXOMER IODINE UD 5 GM TUBE ONE; +GABA-532 PO; +HYDR100T27 PO; +LORA-259 PO; +METO50TA16 PO; +PANT40TA2 PO; +SEVE800T8 MT; +SITA50TA PO
[2022-02-22 11:23] LABS: BASOPHILS # (AUTO) 0.1 K/uL (0.0-0.2); BASOPHILS % (AUTO) 1.8 % (0.0-2.0); EOSINOPHILS % (AUTO) 4.8 % (0.0-6.0); HEMATOCRIT 24 % (39-51); HEMOGLOBIN 8.2 g/dL (13.5-17.5); LYMPHOCYTES % (AUTO) 12.5 % (20.0-44.0); MEAN CORPUSCULAR HGB CONC 34 g/dl (31.0-36.0); MEAN CORPUSCULAR VOLUME 85 fL (80-96); MONOCYTES % (AUTO) 13.2 % (2.0-12.0); NEUTROPHILS # (AUTO) 5.2 K/uL (1.8-8.9); NEUTROPHILS % (AUTO) 67.7 % (43.0-81.0); PLATELET COUNT (AUTO) 276 K/uL (150-450); RED BLOOD CELL COUNT(AUTO) 2.86 MIL/uL (4.5-6.0); WHITE BLOOD COUNT (AUTO) 7.6 K/uL (4.3-11.0)
== END 2022-02-22 23:59 | disposition home or self-care (01) ==
LOC: WOU 10:36
PROVIDERS: ATTEND Specialist
DX: E11.69 Type 2 diabetes mellitus with other specified complication (principal); E11.22 Type 2 diabetes mellitus with diabetic chronic kidney disease; E11.42 Type 2 diabetes mellitus with diabetic polyneuropathy; I12.0 Hypertensive chronic kidney disease with stage 5 chronic kidney disease or end stage renal disease; M86.371 Chronic multifocal osteomyelitis, right ankle and foot; N18.6 End stage renal disease; Z99.2 Dependence on renal dialysis; Z87.891 Personal history of nicotine dependence; Z79.84 Long term (current) use of oral hypoglycemic drugs; D64.9 Anemia, unspecified; R53.83 Other fatigue; Z79.01 Long term (current) use of anticoagulants; Z79.899 Other long term (current) drug therapy
CPT/HCPCS: 36415; 85025; G0463

== ENCOUNTER 2022-03-01 11:15 | Outpatient (CLI) | payer MEDICARE, OTHER ==
[2022-03-01] MEDS ORDERED: CADEXOMER IODINE UD 5 GM TUBE ONE (11:45)
== END 2022-03-01 23:59 | disposition home or self-care (01) ==
LOC: WOU 11:15
PROVIDERS: ATTEND Specialist
DX: T86.821 Skin graft (allograft) (autograft) failure (principal); E11.22 Type 2 diabetes mellitus with diabetic chronic kidney disease; E11.69 Type 2 diabetes mellitus with other specified complication; E11.42 Type 2 diabetes mellitus with diabetic polyneuropathy; N18.6 End stage renal disease; M86.371 Chronic multifocal osteomyelitis, right ankle and foot; Z99.2 Dependence on renal dialysis; Z79.84 Long term (current) use of oral hypoglycemic drugs; Z79.01 Long term (current) use of anticoagulants; Z79.82 Long term (current) use of aspirin; R60.0 Localized edema
CPT/HCPCS: G0463

== ENCOUNTER 2022-03-01 11:55 | Outpatient (CLI) | payer MEDICARE, OTHER | END 2022-03-01 23:59 | disposition home or self-care (01) | LOC: WOU 11:55 | PROVIDERS: ATTEND Registered Nurse | DX: E11.22 Type 2 diabetes mellitus with diabetic chronic kidney disease (principal); E11.69 Type 2 diabetes mellitus with other specified complication; E11.621 Type 2 diabetes mellitus with foot ulcer; I12.0 Hypertensive chronic kidney disease with stage 5 chronic kidney disease or end stage renal disease; M86.171 Other acute osteomyelitis, right ankle and foot; M86.671 Other chronic osteomyelitis, right ankle and foot; L97.519 Non-pressure chronic ulcer of other part of right foot with unspecified severity; N18.6 End stage renal disease; B95.7 Other staphylococcus as the cause of diseases classified elsewhere; Z99.2 Dependence on renal dialysis; Z89.421 Acquired absence of other right toe(s) | CPT/HCPCS: G0463 ==

== ENCOUNTER 2022-03-03 10:45 | Outpatient (CLI) | payer MEDICARE, OTHER ==
[2022-03-03] MEDS ORDERED: MUPIROCIN 2% CREAM 15 GM TUBE TP ONE (11:04)
[2022-03-03] MEDS ORDERED: CADEXOMER IODINE UD 5 GM TUBE ONE (11:07)
== END 2022-03-03 23:59 | disposition home or self-care (01) ==
LOC: WOU 10:45
PROVIDERS: ATTEND Podiatrist Foot & Ankle Surgery
DX: E11.621 Type 2 diabetes mellitus with foot ulcer (principal); L97.512 Non-pressure chronic ulcer of other part of right foot with fat layer exposed; T86.821 Skin graft (allograft) (autograft) failure; E11.22 Type 2 diabetes mellitus with diabetic chronic kidney disease; E11.42 Type 2 diabetes mellitus with diabetic polyneuropathy; E11.69 Type 2 diabetes mellitus with other specified complication; I12.0 Hypertensive chronic kidney disease with stage 5 chronic kidney disease or end stage renal disease; M86.671 Other chronic osteomyelitis, right ankle and foot; N18.6 End stage renal disease; Z99.2 Dependence on renal dialysis; Z87.891 Personal history of nicotine dependence; Z79.84 Long term (current) use of oral hypoglycemic drugs; Z79.01 Long term (current) use of anticoagulants; Z79.82 Long term (current) use of aspirin; D63.1 Anemia in chronic kidney disease
CPT/HCPCS: 11042

== ENCOUNTER 2022-03-10 10:35 | Outpatient (CLI) | payer MEDICARE, OTHER ==
[2022-03-10] MEDS ORDERED: MUPIROCIN 2% CREAM 15 GM TUBE TP ONE (10:50)
== END 2022-03-10 23:59 | disposition home or self-care (01) ==
LOC: WOU 10:35
PROVIDERS: ATTEND Podiatrist Foot & Ankle Surgery
DX: E11.621 Type 2 diabetes mellitus with foot ulcer (principal); L97.512 Non-pressure chronic ulcer of other part of right foot with fat layer exposed; T86.821 Skin graft (allograft) (autograft) failure; E11.22 Type 2 diabetes mellitus with diabetic chronic kidney disease; E11.42 Type 2 diabetes mellitus with diabetic polyneuropathy; E11.69 Type 2 diabetes mellitus with other specified complication; I12.0 Hypertensive chronic kidney disease with stage 5 chronic kidney disease or end stage renal disease; M86.371 Chronic multifocal osteomyelitis, right ankle and foot; N18.6 End stage renal disease; Z99.2 Dependence on renal dialysis; Z79.84 Long term (current) use of oral hypoglycemic drugs; Z79.82 Long term (current) use of aspirin; Z79.899 Other long term (current) drug therapy; Z79.01 Long term (current) use of anticoagulants
CPT/HCPCS: 11042

== ENCOUNTER 2022-03-17 10:20 | Outpatient (CLI) | payer MEDICARE, OTHER ==
[2022-03-17] MEDS ORDERED: MUPIROCIN 2% CREAM 15 GM TUBE TP ONE (10:43)
[2022-03-17] MEDS ORDERED: UREA 10% -AHA 4% CREAM 57 GM TUBE ONE (10:43)
== END 2022-03-17 23:59 | disposition home or self-care (01) ==
LOC: WOU 10:20
PROVIDERS: ATTEND Podiatrist Foot & Ankle Surgery
DX: E11.621 Type 2 diabetes mellitus with foot ulcer (principal); L97.512 Non-pressure chronic ulcer of other part of right foot with fat layer exposed; E11.22 Type 2 diabetes mellitus with diabetic chronic kidney disease; E11.42 Type 2 diabetes mellitus with diabetic polyneuropathy; E11.69 Type 2 diabetes mellitus with other specified complication; I12.0 Hypertensive chronic kidney disease with stage 5 chronic kidney disease or end stage renal disease; M86.371 Chronic multifocal osteomyelitis, right ankle and foot; N18.6 End stage renal disease; Z99.2 Dependence on renal dialysis; Z79.84 Long term (current) use of oral hypoglycemic drugs; T86.821 Skin graft (allograft) (autograft) failure; B35.1 Tinea unguium; Z79.01 Long term (current) use of anticoagulants; Z79.82 Long term (current) use of aspirin
CPT/HCPCS: 11042

== ENCOUNTER 2022-04-07 09:00 | Outpatient (CLI) | payer MEDICARE, OTHER ==
[2022-04-07] MEDS ORDERED: MUPIROCIN 2% CREAM 15 GM TUBE TP ONE (09:26)
[2022-04-21] MEDS ORDERED: METH4TAB17 PO (09:10)
[2022-04-21] MEDS ORDERED: AMIO200T7 PO (09:10)
== END 2022-04-07 23:59 | disposition home or self-care (01) ==
LOC: WOU 09:00
PROVIDERS: ATTEND Podiatrist Foot & Ankle Surgery
DX: E11.621 Type 2 diabetes mellitus with foot ulcer (principal); L97.512 Non-pressure chronic ulcer of other part of right foot with fat layer exposed; E11.22 Type 2 diabetes mellitus with diabetic chronic kidney disease; E11.42 Type 2 diabetes mellitus with diabetic polyneuropathy; E11.69 Type 2 diabetes mellitus with other specified complication; I12.0 Hypertensive chronic kidney disease with stage 5 chronic kidney disease or end stage renal disease; M86.671 Other chronic osteomyelitis, right ankle and foot; N18.6 End stage renal disease; Z99.2 Dependence on renal dialysis; Z87.891 Personal history of nicotine dependence; Z79.84 Long term (current) use of oral hypoglycemic drugs; Z79.82 Long term (current) use of aspirin; D63.1 Anemia in chronic kidney disease; B35.1 Tinea unguium; Z79.01 Long term (current) use of anticoagulants
CPT/HCPCS: 11042

== ENCOUNTER 2022-04-15 18:46 | Inpatient (IN) | payer MEDICARE, OTHER ==
[~2022-04-15] VITALS: Ht 167.6 cm; Wt 59.0 kg
--- NOTE | 2022-04-15 18:55 | NUR ---
BIBS C/O NON RADIATING CP NAUSEA AND VOMITING SINCE 9AM DIALYSIS PT, DIALYSED TODAY. PATIENT STATED CHEST PAIN IS 8/20 ON PAIN SCALE. ATTACHED TO MONITOR, BLOOD PRESSURE ELEVATED, MD ARE. NO RESP DISTRESS NOTED, ON ROOM AIR. AWAITING MD ORDERS.
--- NOTE | 2022-04-15 19:04 | NUR ---
IV ESTABLISHED L AC 18G. LABS DRAWN AND COLLECTED AT BEDSIDE.
--- NOTE | 2022-04-15 19:08 | NUR ---
X RAY AT BEDSIDE
--- NOTE | 2022-04-15 19:15 | NUR ---
LFA HD AV FISTUAL NOTED; BUIT & THRILL +
[2022-04-15] MEDS ORDERED: ASPIRIN 325 MG TABLET ONE (19:27)
[2022-04-15] MEDS ORDERED: ASPIRIN 325 MG TABLET PO ONE (19:30)
--- NOTE | 2022-04-15 19:33 | NUR ---
COVID ANTIGEN SWAB COLLECTED AND SENT TO LAB
[2022-04-15 19:42] LABS: CALCIUM, SERUM 9.2 mg/dL (8.5-10.1); CARBON DIOXIDE 28 mmol/L (21-32); CHLORIDE 99 mmol/L (98-107); CREATININE 6.8 mg/dL (0.6-1.3); GLUCOSE 149 mg/dL (74-106); SODIUM SERUM 136 mmol/L (136-145); UREA NITROGEN, BLOOD 31 mg/dL (7-18)
[2022-04-15 20:05] LABS: BASOPHILS # (AUTO) 0.1 K/uL (0.0-0.2); BASOPHILS % (AUTO) 2.2 % (0.0-2.0); EOSINOPHILS % (AUTO) 5.4 % (0.0-6.0); HEMATOCRIT 29 % (39-51); HEMOGLOBIN 9.6 g/dL (13.5-17.5); LYMPHOCYTES # (AUTO) 0.7 K/uL (0.8-4.8); LYMPHOCYTES % (AUTO) 13.8 % (20.0-44.0); MEAN CORPUSCULAR HGB CONC 34 g/dl (31.0-36.0); MEAN CORPUSCULAR VOLUME 84 fL (80-96); MONOCYTES % (AUTO) 21.1 % (2.0-12.0); NEUTROPHILS # (AUTO) 2.8 K/uL (1.8-8.9); NEUTROPHILS % (AUTO) 57.5 % (43.0-81.0); PLATELET COUNT (AUTO) 151 K/uL (150-450); RED BLOOD CELL COUNT(AUTO) 3.39 MIL/uL (4.5-6.0); WHITE BLOOD COUNT (AUTO) 4.9 K/uL (4.3-11.0)
[2022-04-15] MEDS ORDERED: AMLO5TAB4 PO (20:28)
[2022-04-15] MEDS ORDERED: ATOR10TA PO (20:29)
[2022-04-15 20:40] LABS: BASOPHILS % (MANUAL) 1 % (0.0-2.0); EOSINOPHILS % (MANUAL) 4 % (0-4); LYMPHOCYTES % (MANUAL) 11 % (16-48); MONOCYTES % (MANUAL) 15 % (0-11.0); NEUTROPHILS % (MANUAL) 69 (42-76)
--- NOTE | 2022-04-15 20:47 | NUR ---
COVID POSITIVE; CONTACT DROPLET ISOLATION IN PLACE.
--- NOTE | 2022-04-15 21:19 | NUR ---
DR. MORENA CAMARGO ON TELEPHONE CALL WITH DR. MONTES REGARDING ADMISSION
--- NOTE | 2022-04-15 22:29 | NUR ---
bed 102
[2022-04-15] MEDS ORDERED: Z GUARD REMEDY 4 OZ OINT TP PRN (22:30)
[2022-04-15] MEDS ORDERED: ZOLPIDEM TARTRATE 5 MG TABLET PO PRN (22:30)
[2022-04-15] MEDS ORDERED: MAGNESIUM HYDROXIDE 30 ML UDC PO PRN (22:30)
[2022-04-15] MEDS ORDERED: ONDANSETRON HCL/PF 4 MG/2 ML VIAL IVP PRN (22:30)
[2022-04-15] MEDS ORDERED: MAG HYDROX/AL HYDROX/SIMETH 30 ML UDC PO PRN (22:30)
--- NOTE | 2022-04-15 22:51 | NUR ---
REPORT GIVEN TO PRINCESS SJ GONSALEZ FOR MYRA
--- NOTE | 2022-04-15 23:18 | NUR ---
PT TRANSFERRED TO [facility] 102 VIA ACLS PROTOCOL. VSS. ALL BELONGINGS WITH PT.
[2022-04-16] VITALS: BP 177/71
--- NOTE | 2022-04-16 00:42 | NUR ---
RN Initial Note Received endorsement from [employer] AX CONSULTANT Harry. Pt arrived to unit via gurney; able to ambulate to bed with steady gait. A&O x4, calm, cooperative with diagnosis of chest pain/COVID 19. On 2L NC with O2sat 98%; pt has no signs of resp distress or SOB; has non-labored and equal breathing; no cough, fever, chills noted. Pt attached to external monitor currently SR with HR 75. IV access RAC 18G, intact and patent; currently has no fluids/meds running through it. Skin noted to be intact. Proper isolation precaution enforced, med reconciled with pt, plan of care discussed with pt and verbalized understanding. Will initiate plan of care and continue to monitor pt throughout the night.
--- NOTE | 2022-04-16 00:51 | NUR ---
RN Note Pt noted to have BP of 192/91 mmHG, HR 75. Dr. Gray notified and ordered Hydralazine 25 mg Q6H for SBP >160 mmHg. Order obtained and carried out.
[2022-04-16] MEDS ORDERED: DEXTROSE 50%-WATER 50 ML DISP.SYRIN IV PRN (01:00)
[2022-04-16] MEDS: hydrALAZINE HCL 25 MG TABLET PO SCH ×3 (01:19→12:08)
[2022-04-16] MEDS: HYDROCODONE/APAP 5/325MG TABLET PO PRN (01:20)
--- NOTE | 2022-04-16 01:40 | NUR ---
RN Note Pt complains of 6-7/10 chest pain that's described as pressure-like, currently non-radiating. Pt given 1 tablet of hydrocodone 5/325 mg. Will monitor for effectiveness.
[2022-04-16 04:00] VITALS: BP 200/83
[2022-04-16] MEDS ORDERED: hydrALAZINE HCL 25 MG TABLET PO SCH (06:00)
[2022-04-16 06:56] LABS: BASOPHILS # (AUTO) 0.1 K/uL (0.0-0.2); EOSINOPHILS % (AUTO) 5.6 % (0.0-6.0); HEMATOCRIT 27 % (39-51); HEMOGLOBIN 9.2 g/dL (13.5-17.5); LYMPHOCYTES # (AUTO) 0.7 K/uL (0.8-4.8); LYMPHOCYTES % (AUTO) 14.5 % (20.0-44.0); MEAN CORPUSCULAR HGB CONC 34 g/dl (31.0-36.0); MEAN CORPUSCULAR VOLUME 84 fL (80-96); MONOCYTES # (AUTO) 1.2 K/uL (0.1-1.30); MONOCYTES % (AUTO) 25.2 % (2.0-12.0); NEUTROPHILS # (AUTO) 2.4 K/uL (1.8-8.9); NEUTROPHILS % (AUTO) 52.7 % (43.0-81.0); PLATELET COUNT (AUTO) 135 K/uL (150-450); RED BLOOD CELL COUNT(AUTO) 3.23 MIL/uL (4.5-6.0); WHITE BLOOD COUNT (AUTO) 4.6 K/uL (4.3-11.0)
--- NOTE | 2022-04-16 07:01 | NUR ---
director of pupil personnel program Closing Note Pt awake in bed, A&O x4, calm, cooperative. Slept well throughout the night. Remains on 2L NC with O2sat stable at 98%; pt reports of mild SOB and non-productive cough. Pt attached to external monitor SR with HR 66. IV access RAC 18G, intact and patent; still has no fluids/meds running through it. LFA shunt intact covered with gauze. Pt reports his chest pain has gone away and that he is feeling much better. Bed in lowest position, call light within reach, side rails up x2. Will endorse to dayshift nurse to continue care.
[2022-04-16 07:13] LABS: CALCIUM, SERUM 9.4 mg/dL (8.5-10.1); MAGNESIUM 2.3 mg/dL (1.8-2.4); PHOSPHORUS 6.5 mg/dL (2.5-4.9); POTASSIUM 4.6 mmol/L (3.5-5.1)
[2022-04-16 07:35] LABS: CREATININE 8.4 mg/dL (0.6-1.3)
--- NOTE | 2022-04-16 07:40 | NUR ---
CHIEF TECHNOLOGY OFFICER OPENING NOTE Patient in bed, asleep. A/O x 4. On O2 at 2 LPM via NC, breathing evenly and unlabored. No SOB or s/s of distress noted. IV access on RAC #18 SL, intact and patent. LFA shunt in place. On tele monitoring showing SR, HR on the 60's. Safety precautions in place: bed in low, locked position; siderails up x 2; call light within reach. Will continue to monitor.
[2022-04-16 08:00] VITALS: BP 185/81
[2022-04-16] MEDS: BLOOD SUGAR DIAGNOSTIC 1 EACH STRIP VI SCH ×4 (08:04→22:50)
[2022-04-16] MEDS: PANTOPRAZOLE 40 MG TABLET.DR PO SCH (08:07)
[2022-04-16] MEDS: ASPIRIN 81 MG TAB.CHEW PO SCH (08:08)
[2022-04-16] MEDS: METOPROLOL TARTRATE 50 MG TABLET PO SCH ×2 (08:08→20:48)
[2022-04-16] MEDS: SEVELAMER CARBONATE 800 MG TABLET PO SCH ×3 (08:08→17:15)
[2022-04-16] MEDS: GABAPENTIN 100 MG CAPSULE PO SCH ×3 (08:08→17:14)
[2022-04-16] MEDS: ATORVASTATIN 10 MG TABLET PO SCH (08:08)
[2022-04-16] MEDS ORDERED: hydrALAZINE HCL 50 MG TABLET PO SCH (09:00)
[2022-04-16] MEDS ORDERED: AMLODIPINE BESYLATE 5 MG TABLET PO SCH (09:00)
[2022-04-16] MEDS ORDERED: AMLODIPINE BESYLATE 10 MG TABLET PO SCH ×2 (09:00)
[2022-04-16] MEDS ORDERED: HEPARIN SODIUM, PORCINE 5000 UNITS/1 ML VIAL SQ SCH (09:00)
[2022-04-16] MEDS ORDERED: PANTOPRAZOLE 40 MG TABLET.DR PO SCH (09:00)
[2022-04-16 12:00] VITALS: BP 191/82
--- NOTE | 2022-04-16 14:00 | NUR ---
RN NOTE Patient's BP is consistently high, latest is 191/82, Dr. Cisneros notified and informed that patient is taking Hydralazine 100 mg q12h at home. Patient currently has Hydralazine [address] cisneros ordered to adjust Hydralazine dose to 100 mg q8h.
[2022-04-16] MEDS: hydrALAZINE HCL 50 MG TABLET PO SCH ×2 (14:05→20:48)
[2022-04-16 16:00] VITALS: BP 187/74
--- NOTE | 2022-04-16 18:45 | NUR ---
COUNTY COMMISSIONER CLOSING NOTE Patient in bed, resting. A/O x 4, able to make needs known. On O2 at 2 LPM via NC, breathing evenly and unlabored. No SOB or s/s of distress noted. IV access on RAC #18 SL, intact and patent. LFA shunt in place. On tele monitoring showing SR, HR on the 60's. All needs attended to. Due meds given. Safety precautions maintained: bed in low, locked position; siderails up x 2; call light within reach. Will endorse to evening or night nurse supervisor nurse for MYRA.
[2022-04-16 20:00] VITALS: BP 209/84
--- NOTE | 2022-04-16 20:34 | NUR ---
sider mechanic Opening Note Pt in bed, awake, A&O x4, calm, cooperative. Pt on 2L NC with O2sat currently at 98%, pt reports of feeling SOB and a productive cough; no other s/s of resp distress, has non-labored and equal breathing. Pt attached to external monitor currently SR with HR 77. IV access RAC 18G intact and patent, no s/s of infiltration; noted to have no fluids running at the time. Bed in lowest position, call light within reach, side rails up x2. Will continue to monitor throughout the night.
[2022-04-16] MEDS: ACETAMINOPHEN 325 MG TABLET PO PRN (20:49)
--- NOTE | 2022-04-16 21:15 | NUR ---
RN Note Pt reports of a 3-4/10 headache that's described as throbbing. Pt requests for Tylenol. Pt given Tylenol 650 mg PRN. Will monitor for effectiveness.
--- NOTE | 2022-04-16 22:19 | NUR ---
FLUMAZENIL 0.2MG/2ML PUSHED AT THIS TIME FOR PATIENT LETHARGY AND DIFFICULT TO AROUSE, AT BEDSIDE.
[2022-04-17] VITALS: BP 192/83
[2022-04-17 04:00] VITALS: BP 94/63
[2022-04-17] MEDS: HYDROCODONE/APAP 5/325MG TABLET PO PRN (04:22)
--- NOTE | 2022-04-17 04:22 | NUR ---
RN Note Pt reports of a 6/10 chest pain. Pt given [place] 5/325 mg 1 tab. Will monitor for effectiveness.
--- NOTE | 2022-04-17 05:36 | NUR ---
RN Note Austin effective; pt in bed asleep but easily arousable.
--- NOTE | 2022-04-17 06:26 | NUR ---
prosthetics assistant Closing Note Pt in bed, A&O x4, slept intermittently throughout night. Pt ambulatory with steady gait. Remains on 2L NC with O2sat ranging from 93%-99%; pt has mild SOB and productive cough per pt report; no other s/s of resp distress, non-labored and equal breathing. Attached to external monitor SR, HR 66. IV access RAC 18G, intact and patent; no fluids/meds running through it. LFA shunt intact covered with gauze. All due meds administered during shift. Bed in lowest position, call light within reach, side rails up x2. Will endorse to dayshift nurse to continue care.
[2022-04-17 08:00] VITALS: BP 206/87
[2022-04-17] MEDS: SEVELAMER CARBONATE 800 MG TABLET PO SCH ×3 (08:17→17:05)
[2022-04-17] MEDS: PANTOPRAZOLE 40 MG TABLET.DR PO SCH (08:17)
[2022-04-17] MEDS: GABAPENTIN 100 MG CAPSULE PO SCH ×3 (08:23→17:05)
[2022-04-17] MEDS: AMLODIPINE BESYLATE 10 MG TABLET PO SCH (08:24)
[2022-04-17] MEDS: hydrALAZINE HCL 50 MG TABLET PO SCH ×3 (08:24→21:00)
[2022-04-17] MEDS: METOPROLOL TARTRATE 50 MG TABLET PO SCH (08:25)
[2022-04-17] MEDS: BLOOD SUGAR DIAGNOSTIC 1 EACH STRIP VI SCH ×4 (08:38→22:53)
[2022-04-17] MEDS: ATORVASTATIN 10 MG TABLET PO SCH (08:39)
[2022-04-17] MEDS: ASPIRIN 81 MG TAB.CHEW PO SCH (08:39)
[2022-04-17 12:00] VITALS: BP 216/84
--- NOTE | 2022-04-17 14:00 | NUR ---
RN NOTES: HOLLOW HANDLE BENCH WORKER AND MYRTLE VALLE GUIDED THORACENTESIS DONE OF RIGHT CHEST WITH 1 LITER OUTPUT,PT REMAINS STABLE
[2022-04-17] MEDS: LORAZEPAM 1 MG TABLET PO PRN (14:03)
[2022-04-17] MEDS ORDERED: CLONIDINE HCL 0.1 MG TABLET PO PRN (15:00)
--- NOTE | 2022-04-17 15:00 | NUR ---
RN NOTES: SPOKE TO DR PORTER BP WAS ABOVE 200 AFTER ROUTINE HYDRALAIZINE BP 188/90 WITH NEW ORDER OF CLONIDINE PRN
[2022-04-17 16:00] VITALS: BP 195/71
--- NOTE | 2022-04-17 18:00 | NUR ---
RN notes: pt wants to go home AMA, called sister and explained to her that he will spread COVID to the house she spoke to him and he agreed to stay at the hospital
--- NOTE | 2022-04-17 19:45 | NUR ---
plastic molder Closing Note Pt in bed, A&O x4, Pt ambulatory with steady gait. Remains on 2L NC with O2sat ranging from 93%-99%; pt has mild SOB and productive cough ; no other s/s of resp distress, non-labored and equal breathing. Attached to external monitor SR, HR 66. IV access RAC 18G, intact and patent; no fluids/meds running through it. LFA shunt intact covered with gauze. All due meds administered during shift. Bed in lowest position, call light within reach, side rails up x2. Will endorse to night court magistrate nurse to continue care.
[2022-04-17 20:00] VITALS: BP 183/66
--- NOTE | 2022-04-17 20:28 | NUR ---
RN NOTES, SUMMONED TO PATIENT'S ROOM, PATIENT NOTED UNAROUSABLE, AND USING THE ABDOMINAL MUSCLES TO BREATHE, WHEN CHECKED VITAL SINGS O2 NOTED 80S, PLACED PT IN NRM 15L, VITAL SINGS 193/82, 77, 89%, 99.1, WHEN ASKED PATIENT QUESTIONS, HE RESPOND TO NAME, AND STATED NAME, BUT CONTINUE SLEEPY, I ASKED TO PATIENT OPEN EYES, HE OPENED THEM, BUT CLOSED THEN AGAIN, INFORMED DR UMAÑA AND GAVE REPORT TO HIM ABOUT PATIENT AND HE REPLIED WITH ORDERS FOR APRESOLINE 20MG IVP ONCE, AND STAT ABGS, AND CRX, ALL ORDERS NOTED AND CARRIED OUT.
[2022-04-17] MEDS ORDERED: hydrALAZINE HCL IV 20 MG VIAL IV ONE (20:30)
[2022-04-17 20:44] LABS: ABG BASE EXCESS 0.1 mmol/L; ABG OXYGEN SATURATION 97.7 % (92.0-98.5); ABG PCO2 41.2 mmHg (35.0-45.0); ABG PO2 108.6 mmHg (75.0-100.0); AaDO2 563.2 mmHg; COHb 0.8 % (0.5-1.5); MetHb 0.2 % (0.0-1.5); O2Hb 96.7 % (94.0-97.0); SITE, ABG Right Radial; VENT MODE, BG NRB 100%
--- NOTE | 2022-04-17 20:53 | NUR ---
RELAYED RESULTS FOR ABG TO SR UMAÑA AND HE REPLIED WITH ORDER TO JUST PUT PATIENT IN 4L O2 VIA NC, WILL REPORT THE CXR RESULTS WHEN READY.
[2022-04-17] MEDS ORDERED: hydrALAZINE HCL IV 20 MG VIAL IV PRN (21:00)
[2022-04-17] MEDS: LABETALOL HCL (100MG) 100 MG TABLET PO SCH (21:00)
[2022-04-17] MEDS: CLONIDINE HCL 0.1 MG TABLET PO SCH (21:00)
[2022-04-17] MEDS ORDERED: METOPROLOL TARTRATE 50 MG TABLET PO SCH (21:00)
--- NOTE | 2022-04-17 21:00 | NUR ---
RN Note Pt given ativan during dayshift and appears to be lethargic, 2100 scheduled oral meds held d/t pt's altered mental status.
[2022-04-17] MEDS ORDERED: FLUMAZENIL 0.5 MG VIAL IV STA (21:54)
--- NOTE | 2022-04-17 22:19 | NUR ---
FLUMAZENIL 0.2MG/2ML PUSHED AT THIS TIME FOR PATIENT LETHARGY AND DIFFICULT TO AROUSE, AT BEDSIDE.
--- NOTE | 2022-04-17 23:04 | NUR ---
EKG DONE AFIB WITH HR 110, PER MD START AMIODARONE DRIP IF HR SUSTAINED >120, WILL CONTINUE TO MONITOR CLOSELY
[2022-04-17] MEDS: DEXAMETHASONE SOD PHOSPHATE 10 MG/ML VIAL IV SCH (23:47)
[2022-04-17] MEDS: ENOXAPARIN SODIUM 60 MG/0.6 ML DISP.SYRIN SQ SCH (23:49)
[2022-04-18] VITALS: BP 172/72
[2022-04-18] MEDS ORDERED: CEFEPIME 1 GM in IV D5W 50 ML IV ONE ×2
[2022-04-18 00:09] LABS: CREATININE 12.9 mg/dL (0.6-1.3); POTASSIUM 6.2 mmol/L (3.5-5.1)
[2022-04-18 00:10] LABS: BILIRUBIN,TOTAL 0.7 mg/dL (0.2-1.0); TOTAL PROTEIN, SERUM 7.6 g/dL (6.4-8.2)
--- NOTE | 2022-04-18 00:23 | NUR ---
HD STARTED AT THIS TIME.
--- NOTE | 2022-04-18 00:30 | NUR ---
RN Note Received critical from lab; creatinine 12.9. Elder CAMARGO notified
[2022-04-18] MEDS ORDERED: CEFEPIME 1 GM VIAL ONE (00:38)
--- NOTE | 2022-04-18 00:40 | NUR ---
REPORTED THE RESULTS OF CMP TO DR UMAÑA AND HE REPLIED WITH ORDER TO GIVE CALCIUM GLUCONATE 2MG STAT AND LET THE NEPHROLOGY KNOW ABOUT K+ LEVEL 6.2, CHRIS NURSE AWARE. QUESTIONED DR IF HE WANTS THE CALCIUM GLUCONATE NOW BECAUSE PATIENT IS GETTING HD NOW, PER MD AFTER HD DONE, DO CMP AND IF THE K+ IS >5.0, GIVE IT IF IS NORMAL CANCEL THE CALCIUM GLUCONATE, NOTED.
--- NOTE | 2022-04-18 02:23 | NUR ---
DONE WITH HD AT THIS TIME 2L OUT, PATIENT TOLERATED WELL, BLOOD PRESSURE 158/72, 73 WILL CONTINUE TO MONITOR CLOSELY.
[2022-04-18] MEDS: ACETAMINOPHEN 325 MG TABLET PO PRN (03:18)
[2022-04-18] MEDS ORDERED: AMIODARONE 150 MG in IV D5W 100 ML IV ONE (03:30)
--- NOTE | 2022-04-18 03:31 | NUR ---
RN Note Patient noted to have temp of 100.4; pt given tylenol 650 mg PRN. Will monitor for effectiveness
--- NOTE | 2022-04-18 03:45 | NUR ---
RN Note Patient started on maxipime 1 gm D5W 50 ml at 100 ml/hr
[2022-04-18] MEDS ORDERED: AMIODARONE 150 MG/3 ML VIAL IV ONE ×2 (03:54→03:55)
[2022-04-18 04:00] VITALS: BP 137/62
--- NOTE | 2022-04-18 04:11 | NUR ---
Amiodarone bolus started at this time BP 139/62, 130HR, will continue to monitor closely.
[2022-04-18] MEDS: AMIODARONE 450 MG in IV D5W 241 ML IV PRN ×2 (04:22→14:04)
[2022-04-18 05:04] LABS: BASOPHILS # (AUTO) 0.2 K/uL (0.0-0.2); BASOPHILS % (AUTO) 2.2 % (0.0-2.0); HEMATOCRIT 29 % (39-51); HEMOGLOBIN 9.7 g/dL (13.5-17.5); LYMPHOCYTES # (AUTO) 0.2 K/uL (0.8-4.8); LYMPHOCYTES % (AUTO) 2.3 % (20.0-44.0); MEAN CORPUSCULAR HGB CONC 33 g/dl (31.0-36.0); MEAN CORPUSCULAR VOLUME 84 fL (80-96); MONOCYTES # (AUTO) 0.4 K/uL (0.1-1.30); MONOCYTES % (AUTO) 4.6 % (2.0-12.0); NEUTROPHILS # (AUTO) 8.3 K/uL (1.8-8.9); NEUTROPHILS % (AUTO) 90.9 % (43.0-81.0); PLATELET COUNT (AUTO) 160 K/uL (150-450); RED BLOOD CELL COUNT(AUTO) 3.49 MIL/uL (4.5-6.0); WHITE BLOOD COUNT (AUTO) 9.1 K/uL (4.3-11.0)
[2022-04-18 05:22] LABS: CALCIUM, SERUM 8.9 mg/dL (8.5-10.1); POTASSIUM 4.8 mmol/L (3.5-5.1)
[2022-04-18 05:29] LABS: CREATININE 8.8 mg/dL (0.6-1.3)
--- NOTE | 2022-04-18 05:30 | NUR ---
RN Note Received critical from lab; creatinine 8.8. Cr level noted to be trending in right direction
[2022-04-18 05:41] LABS: IRON, SERUM 10 ug/dl (50-175); TOTAL IRON BINDING CAPACITY 139 ug/dl (250-450)
[2022-04-18 06:05] LABS: FERRITIN 1261 ng/mL (8-388)
--- NOTE | 2022-04-18 06:28 | NUR ---
urban forester Closing Note Pt in bed, asleep, more alert and oriented compared to start of shift. Pt currently on 6L NC with O2sat in high 90s; pt's breathing has noted to have improved after receiving dialysis with continued slight use of abdominal muscles when breathing. Attached to external monitor; with improvement of rhythm from Afib to SR after starting amiodarone, HR 67. IV access RAC 18G, intact and patent; currently running amiodarone 1 mg at 33.3 ml/hr; also infused maxipimie 1 mg at 100 ml/hr at 0300. LFA shunt intact, with thrill palpable and bruit auscultated. All due meds administered during shift. Bed in lowest position, call light within reach, side rails up x2. Will endorse to dayshift nurse to continue care.
[2022-04-18 08:00] VITALS: BP 154/65
--- NOTE | 2022-04-18 08:01 | NUR ---
[facility] RN NOTE PATIENT IN BED , ON 6L NC SATURATION 99% AT THIS TIME SLEEPING BUT EASILY AWAKE WHEN TOUCH TO HIM, ON AMIO DRIP AT THIS TIME, SR HR 62, , RT AC HL INTACT ,DR JOHNSON AT BEDSIDE AWARE PATIENT ON AMIO DRIP HR 62 , NA 129 BED IN LOWEST AND LOCKED POSITION , CALL LIGHT WITHIN REACH
[2022-04-18] MEDS: hydrALAZINE HCL 50 MG TABLET PO SCH ×3 (08:34→21:00)
[2022-04-18] MEDS: ASPIRIN 81 MG TAB.CHEW PO SCH (08:34)
[2022-04-18] MEDS: SEVELAMER CARBONATE 800 MG TABLET PO SCH ×3 (08:34→17:18)
[2022-04-18] MEDS: DEXAMETHASONE SOD PHOSPHATE 10 MG/ML VIAL IV SCH (08:35)
[2022-04-18] MEDS: PANTOPRAZOLE 40 MG TABLET.DR PO SCH (08:35)
[2022-04-18] MEDS: ATORVASTATIN 10 MG TABLET PO SCH (08:36)
[2022-04-18] MEDS: AMLODIPINE BESYLATE 10 MG TABLET PO SCH (08:36)
[2022-04-18] MEDS: GABAPENTIN 100 MG CAPSULE PO SCH ×3 (08:36→16:26)
[2022-04-18] MEDS: INSULIN REGULAR, HUMAN 100 UNIT/ML 3 ML VIAL SQ PRN (08:51)
[2022-04-18] MEDS: LABETALOL HCL (100MG) 100 MG TABLET PO SCH ×2 (09:00→21:00)
--- NOTE | 2022-04-18 10:41 | NUR ---
[facility] RN NOTE RESTING COMFORTABLY ,ALL NEEDS ATTENDED CONT ON AMIO DRIP ORDERED
[2022-04-18] MEDS: BLOOD SUGAR DIAGNOSTIC 1 EACH STRIP VI SCH ×4 (11:55→21:36)
[2022-04-18 12:00] VITALS: BP 154/74
--- NOTE | 2022-04-18 12:03 | NUR ---
RN NOTE DR. VEGA PT HR:55 SINUS EDWARDO NOTIFIED CONTINUE DRIP AT PROTOCOL
[2022-04-18] MEDS: CLONIDINE HCL 0.1 MG TABLET PO SCH ×3 (13:00→21:00)
[2022-04-18] MEDS ORDERED: DEXAMETHASONE SOD PHOSPHATE 10 MG/ML VIAL IV SCH (14:30)
--- NOTE | 2022-04-18 15:00 | NUR ---
ETYMOLOGY TEACHER NOTE. HD WILL START ORDERED
[2022-04-18] MEDS ORDERED: EPOETIN ALFA (10,000 UNIT) 10,000 UNIT/ML VIAL IV ONE (15:30)
[2022-04-18 16:00] VITALS: BP 129/60
[2022-04-18] MEDS: *INSULIN REGULAR(HUMULIN R)HUM 100 UNIT/ML VIAL SQ PRN ×2 (17:24→21:36)
--- NOTE | 2022-04-18 17:29 | NUR ---
b television production assistant note on hd at this time having dinner
--- NOTE | 2022-04-18 17:52 | NUR ---
RN NOTE NEW HEP LOCK INSERTED ON RIGHT FOREARM INSERTED GOOD BLOOD RETURN PT CONTINUE ON HEMODIALYSIS NOT IN DISTRESS AT THIS TIME
--- NOTE | 2022-04-18 18:19 | NUR ---
sharifa rn note patient in bed alert oriented on6l nc saturation 96% on tele monitor sr 61, cont on amio drip at 0.5 mg as ordered, bed in lowest and locked position , on hd at this time, will cont to monitor closely ,no sob noted ,call light within reach
[2022-04-18] MEDS ORDERED: SOD FERRIC GLUC 125 MG in IV NS 0.9% 100 ML IV SCH (19:00)
--- NOTE | 2022-04-18 19:15 | NUR ---
RN NOTE PT RECEIVED IN BED. PT IS ON 5L OF O2 VIA NC SHOWING NO S/SX OF RESP DISTRESS. PT IS A/OX3-4. ON TELE MONITOR SHOWING NSR. ON RENAL DIET. IV ACCESS NOTED ON RIGHT FA #[id number]. LINE FLUSHED, PATENT, AND INTACT WITH NO SIGNS OF INFILTRATION. ALL SAFETY MEASURES IMPLEMENTED. WILL CONTINUE TO MONITOR AND ASSESS FOR ANY CHANGES DURING SHIFT.
[2022-04-18 20:00] VITALS: BP 118/62
--- NOTE | 2022-04-18 21:01 | NUR ---
RN NOTE SPOKE WITH DR. MONTES AND MENTIONED THAT PT HAS 2100 SCHEDULED BP MEDICATIONS OF CLONIDINE, APRESOLINE, AND LABETALOL WELL AMIODARONE AND THAT LATEST BP WAS 113/63 AND OTHER SBP READING WAS 127. PER DR. MONTES, HOLD ALL 3 BP MEDICATIONS AND ADMINISTER AMIODARONE.
[2022-04-18] MEDS: SOD FERRIC GLUC 125 MG in IV NS 0.9% 100 ML IV SCH (21:08)
[2022-04-18] MEDS: AMIODARONE HCL 200 MG TABLET PO SCH (21:08)
[2022-04-19] VITALS: BP 139/69
[2022-04-19] MEDS: ENOXAPARIN SODIUM 60 MG/0.6 ML DISP.SYRIN SQ SCH ×2 (00:37→23:58)
[2022-04-19] MEDS: ACETAMINOPHEN 325 MG TABLET PO PRN (02:40)
[2022-04-19 04:00] VITALS: BP 130/73
[2022-04-19] MEDS: CLONIDINE HCL 0.1 MG TABLET PO SCH ×3 (04:22→21:00)
--- NOTE | 2022-04-19 06:23 | NUR ---
RN NOTE NO CHANGES IN PT CONDITION DURING SHIFT. PT IS ON 5L OF O2 VIA NC SHOWING NO S/SX OF RESP DISTRESS. IV ACCESS NOTED ON RIGHT FA #22. ALL SAFETY MEASURES IMPLEMENTED. ALL DUE MEDS GIVEN ORDERED. WILL ENDORSE TO MORNING SHIFT RN FOR MYRA.
[2022-04-19 06:34] LABS: BASOPHILS % (AUTO) 0.1 % (0.0-2.0); HEMATOCRIT 31 % (39-51); HEMOGLOBIN 10.2 g/dL (13.5-17.5); LYMPHOCYTES # (AUTO) 0.6 K/uL (0.8-4.8); LYMPHOCYTES % (AUTO) 5.5 % (20.0-44.0); MEAN CORPUSCULAR HGB CONC 33 g/dl (31.0-36.0); MEAN CORPUSCULAR VOLUME 82 fL (80-96); MONOCYTES % (AUTO) 9.8 % (2.0-12.0); NEUTROPHILS # (AUTO) 9.1 K/uL (1.8-8.9); NEUTROPHILS % (AUTO) 84.6 % (43.0-81.0); PLATELET COUNT (AUTO) 208 K/uL (150-450); RED BLOOD CELL COUNT(AUTO) 3.73 MIL/uL (4.5-6.0); WHITE BLOOD COUNT (AUTO) 10.7 K/uL (4.3-11.0)
[2022-04-19 06:54] LABS: CALCIUM, SERUM 9.9 mg/dL (8.5-10.1); CREATININE 7.3 mg/dL (0.6-1.3); POTASSIUM 4.6 mmol/L (3.5-5.1)
[2022-04-19] MEDS: BLOOD SUGAR DIAGNOSTIC 1 EACH STRIP VI SCH ×4 (07:45→22:28)
--- NOTE | 2022-04-19 07:46 | NUR ---
RN OPENING NOTE PATIENT RECEIVED IN BED, RESTING. PATIENT ON 5L O2 NC WITH NO SIGNS OF LABORED BREATHING SAT 100% ON BEDSIDE MONITOR. HR 61 ON TELE MONITOR. RIGHT FA 22G IN PLACE SL. BED LOCKED AND IN LOWEST POSITION, CALL LIGHT WITHIN REACH, 2 SIDE RAILS UP.
[2022-04-19 08:00] VITALS: BP 147/74
[2022-04-19] MEDS: ASPIRIN 81 MG TAB.CHEW PO SCH (08:17)
[2022-04-19] MEDS: PANTOPRAZOLE 40 MG TABLET.DR PO SCH (08:17)
[2022-04-19] MEDS: AMLODIPINE BESYLATE 10 MG TABLET PO SCH (08:17)
[2022-04-19] MEDS: ATORVASTATIN 10 MG TABLET PO SCH (08:17)
[2022-04-19] MEDS: DEXAMETHASONE SOD PHOSPHATE 10 MG/ML VIAL IV SCH (08:17)
[2022-04-19] MEDS: GABAPENTIN 100 MG CAPSULE PO SCH ×3 (08:17→17:12)
[2022-04-19] MEDS: SEVELAMER CARBONATE 800 MG TABLET PO SCH ×3 (08:17→17:12)
[2022-04-19] MEDS: LABETALOL HCL (100MG) 100 MG TABLET PO SCH ×2 (08:18→21:00)
[2022-04-19] MEDS: AMIODARONE HCL 200 MG TABLET PO SCH ×2 (08:18→21:00)
[2022-04-19] MEDS: hydrALAZINE HCL 50 MG TABLET PO SCH ×3 (08:18→21:00)
[2022-04-19] MEDS: INSULIN REGULAR, HUMAN 100 UNIT/ML 3 ML VIAL SQ PRN ×4 (08:20→22:31)
[2022-04-19 12:00] VITALS: BP 127/80
[2022-04-19] MEDS: SOD FERRIC GLUC 125 MG in IV NS 0.9% 100 ML IV SCH (14:17)
[2022-04-19 16:00] VITALS: BP 107/57
--- NOTE | 2022-04-19 18:36 | NUR ---
RN CLOSING NOTE PATIENT REMAINS IN BED, AWAKE, A&OX4. PATIENT ON 2L O2 NC WITH NO SIGNS OF LABORED BREATHING SAT 96% ON BEDSIDE MONITOR. HR 65 ON TELE MONITOR. RIGHT FA 22G IN PLACE SL. ALL NEEDS ATTENDED DURING SHIFT. NO SIGNS OF ACUTE DISTRESS NOTED AT THIS TIME. BED LOCKED AND IN LOWEST POSITION, CALL LIGHT WITHIN REACH, 2 SIDE RAILS UP. WILL ENDORSE TO URBAN PLANNING TEACHER NURSE FOR MYRA.
[2022-04-19 20:00] VITALS: BP 139/70
[2022-04-19] MEDS: CEFEPIME 1 GM in IV D5W 50 ML IV SCH (20:12)
[2022-04-20] VITALS: BP 148/83
[2022-04-20 04:00] VITALS: BP 163/77
[2022-04-20] MEDS: CLONIDINE HCL 0.1 MG TABLET PO SCH ×3 (05:27→21:18)
--- NOTE | 2022-04-20 05:40 | NUR ---
RN CLOSING NOTE PATIENT RESTING IN BED. A/OX4. TITRATED FROM 2L TO ROOM AIR. NO RESPIRATORY DISTRESS. NO COMPLAINTS OF PAIN. SINUS RHYTHM/SINUS EDWARDO ON MONITOR. LOW HR OF 58. MANAGED BLOOD SUGAR VIA SLIDING SCALE, NO S/S HYPOGLYCEMIA. ABX GIVEN. PRN ANGÉLICA X1. BED IS LOW AND LOCKED, HOB ELEVATED IN SEMI FOWLERS, SIDE RAILS UPX2, CALL LIGHT WITHIN REACH. SCHEDULED FOR HD TODAY.
[2022-04-20 05:58] LABS: BASOPHILS % (AUTO) 0.1 % (0.0-2.0); CALCIUM, SERUM 9.8 mg/dL (8.5-10.1); HEMATOCRIT 31 % (39-51); HEMOGLOBIN 10.4 g/dL (13.5-17.5); LYMPHOCYTES # (AUTO) 0.5 K/uL (0.8-4.8); LYMPHOCYTES % (AUTO) 5.6 % (20.0-44.0); MEAN CORPUSCULAR HGB CONC 34 g/dl (31.0-36.0); MEAN CORPUSCULAR VOLUME 82 fL (80-96); MONOCYTES # (AUTO) 0.9 K/uL (0.1-1.30); MONOCYTES % (AUTO) 9.2 % (2.0-12.0); NEUTROPHILS # (AUTO) 8.1 K/uL (1.8-8.9); NEUTROPHILS % (AUTO) 85.1 % (43.0-81.0); PLATELET COUNT (AUTO) 258 K/uL (150-450); RED BLOOD CELL COUNT(AUTO) 3.75 MIL/uL (4.5-6.0); WHITE BLOOD COUNT (AUTO) 9.5 K/uL (4.3-11.0)
[2022-04-20 06:21] LABS: CREATININE 9.7 mg/dL (0.6-1.3)
[2022-04-20 08:00] VITALS: BP 166/83
--- NOTE | 2022-04-20 08:02 | NUR ---
RN NOTE PT RECEIVED ASLEEP IN BED, WITH ONGOING HD. IN ROOM AIR, NOT IN RESPI DISTRESS, WITH O2 SAT OF 04. IV ACCESS TO RFA G22 IN PLACE AND PATENT. SAFETY MEASURES FOLLOWED. WILL CONTINUE TO MONITOR.
[2022-04-20] MEDS: BLOOD SUGAR DIAGNOSTIC 1 EACH STRIP VI SCH ×4 (09:33→22:00)
[2022-04-20] MEDS: SEVELAMER CARBONATE 800 MG TABLET PO SCH ×3 (10:08→17:08)
[2022-04-20] MEDS: ATORVASTATIN 10 MG TABLET PO SCH (10:08)
[2022-04-20] MEDS: ASPIRIN 81 MG TAB.CHEW PO SCH (10:08)
[2022-04-20] MEDS: GABAPENTIN 100 MG CAPSULE PO SCH ×3 (10:08→17:08)
[2022-04-20] MEDS: DEXAMETHASONE SOD PHOSPHATE 10 MG/ML VIAL IV SCH (10:09)
[2022-04-20] MEDS: PANTOPRAZOLE 40 MG TABLET.DR PO SCH (10:12)
[2022-04-20] MEDS: LABETALOL HCL (100MG) 100 MG TABLET PO SCH ×2 (11:10→21:19)
[2022-04-20] MEDS: AMIODARONE HCL 200 MG TABLET PO SCH ×2 (11:10→21:17)
[2022-04-20] MEDS: AMLODIPINE BESYLATE 10 MG TABLET PO SCH (11:11)
[2022-04-20] MEDS: hydrALAZINE HCL 50 MG TABLET PO SCH ×3 (11:11→21:19)
[2022-04-20 12:00] VITALS: BP 152/73
[2022-04-20] MEDS: INSULIN REGULAR, HUMAN 100 UNIT/ML 3 ML VIAL SQ PRN (12:49)
[2022-04-20] MEDS: SOD FERRIC GLUC 125 MG in IV NS 0.9% 100 ML IV SCH (14:09)
[2022-04-20 16:00] VITALS: BP 129/73
--- NOTE | 2022-04-20 17:10 | NUR ---
RN NOTE PT RESTING IN BED, POST DIALYSIS WITH 3L REMOVED. PT IN O2 @2L VIA NC WITH O2 SAT OF %97, NOT IN RESPI DISTRESS. IV ACCESS TO RFA G22 IN PLACE AND PATENT. LFA FISTULA IN PLACE, DRESSING DRY AND INTACT. ALL DUE MEDICATIONS TAKEN. NEEDS ATTENDED. SAFETY MEASURES FOLLOWED. WILL ENDORSE TO NEXT SHIFT.
[2022-04-20 20:00] VITALS: BP 159/61
--- NOTE | 2022-04-20 20:00 | NUR ---
CONTRACT RECRUITER OPENING NOTE Patient in bed, awake alert . A/O x 4.able to make needs known ,v/s stable afebrile . On O2 at 2 LPM via NC, breathing evenly and unlabored. No SOB or s/s of distress noted. IV access on R hand newly inserted G #22 SL, intact and patent. LFA shunt in place. On tele monitoring showing SR, HR on the 60's. Safety precautions in place: bed in low, locked position; siderails up x 2; due meds given as ordered call light within reach. Will continue to monitor. all needs attended too .will continue to monitor pts.
[2022-04-20] MEDS: CEFEPIME 1 GM in IV D5W 50 ML IV SCH (20:44)
[2022-04-20] MEDS: *INSULIN REGULAR(HUMULIN R)HUM 100 UNIT/ML VIAL SQ PRN (23:03)
--- NOTE | 2022-04-20 23:19 | NUR ---
telephone diaphragm assembler notes blood sugar at 2200hrs is 299 mg/dl 6 units of regular insulin given per sliding scale will check bs again am pts is on po diet offer snacks
[2022-04-20] MEDS: ENOXAPARIN SODIUM 60 MG/0.6 ML DISP.SYRIN SQ SCH (23:23)
[2022-04-21] VITALS: BP 151/74
[2022-04-21] MEDS: LORAZEPAM 1 MG TABLET PO PRN (00:28)
[2022-04-21 04:00] VITALS: BP 149/74
[2022-04-21] MEDS: CLONIDINE HCL 0.1 MG TABLET PO SCH (05:45)
[2022-04-21 06:17] LABS: CALCIUM, SERUM 9.9 mg/dL (8.5-10.1); POTASSIUM 4.8 mmol/L (3.5-5.1)
[2022-04-21 06:21] LABS: BASOPHILS % (AUTO) 0.1 % (0.0-2.0); EOSINOPHILS % (AUTO) 0.2 % (0.0-6.0); HEMATOCRIT 32 % (39-51); HEMOGLOBIN 10.8 g/dL (13.5-17.5); LYMPHOCYTES # (AUTO) 0.5 K/uL (0.8-4.8); LYMPHOCYTES % (AUTO) 5.4 % (20.0-44.0); MEAN CORPUSCULAR HGB CONC 34 g/dl (31.0-36.0); MEAN CORPUSCULAR VOLUME 82 fL (80-96); MONOCYTES % (AUTO) 10.6 % (2.0-12.0); NEUTROPHILS # (AUTO) 7.8 K/uL (1.8-8.9); NEUTROPHILS % (AUTO) 83.7 % (43.0-81.0); PLATELET COUNT (AUTO) 308 K/uL (150-450); RED BLOOD CELL COUNT(AUTO) 3.96 MIL/uL (4.5-6.0); WHITE BLOOD COUNT (AUTO) 9.3 K/uL (4.3-11.0)
--- NOTE | 2022-04-21 06:31 | NUR ---
RN CLOSING NOTE PATIENT RESTING IN BED. A/OX4. on 2L 02 via nc. NO RESPIRATORY DISTRESS. NO COMPLAINTS OF PAIN. SINUS RHYTHM/SINUS EDWARDO ON MONITOR. MANAGED BLOOD SUGAR VIA SLIDING SCALE, NO S/S HYPOGLYCEMIA.will endorse to rn day shift for continuity of care
[2022-04-21 06:58] LABS: CREATININE 8.7 mg/dL (0.6-1.3)
--- NOTE | 2022-04-21 07:30 | NUR ---
RN OPENING NOTES PATIENT RESTING IN BED, A/OX4. ON ENHANCED DROPLET PRECAUTIONS. ON 2L OF O2 VIA NC, WITH NO SOB NOTED. DENIES PAIN AT THIS TIME. R HAND G#22, INTACT AND PATENT. SAFETY PRECAUTIONS IN PLACE. CALL LIGHT WITHIN REACH. WILL CONTINUE TO MONITOR
[2022-04-21 08:00] VITALS: BP 143/68
[2022-04-21] MEDS: hydrALAZINE HCL 50 MG TABLET PO SCH (08:23)
[2022-04-21] MEDS: GABAPENTIN 100 MG CAPSULE PO SCH (08:23)
[2022-04-21] MEDS: AMLODIPINE BESYLATE 10 MG TABLET PO SCH (08:23)
[2022-04-21] MEDS: PANTOPRAZOLE 40 MG TABLET.DR PO SCH (08:24)
[2022-04-21] MEDS: ATORVASTATIN 10 MG TABLET PO SCH (08:24)
[2022-04-21] MEDS: LABETALOL HCL (100MG) 100 MG TABLET PO SCH (08:24)
[2022-04-21] MEDS: ASPIRIN 81 MG TAB.CHEW PO SCH (08:24)
[2022-04-21] MEDS: SEVELAMER CARBONATE 800 MG TABLET PO SCH (08:24)
[2022-04-21 08:25] VITALS: BP 143/68
[2022-04-21] MEDS: DEXAMETHASONE SOD PHOSPHATE 10 MG/ML VIAL IV SCH (08:25)
[2022-04-21] MEDS: AMIODARONE HCL 200 MG TABLET PO SCH (08:25)
[2022-04-21] MEDS: INSULIN REGULAR, HUMAN 100 UNIT/ML 3 ML VIAL SQ PRN (08:54)
[2022-04-21] MEDS ORDERED: AMIO200T7 PO (09:10)
[2022-04-21] MEDS ORDERED: METH4TAB17 PO (09:10)
[2022-04-21] MEDS: BLOOD SUGAR DIAGNOSTIC 1 EACH STRIP VI SCH ×2 (10:32→12:00)
--- NOTE | 2022-04-21 12:00 | NUR ---
RN NOTES PATIENT REFUSED TO HAVE BLOOD SUGAR CHECKED. STATES HE WILL CHECK BLOOD SUGAR WHEN HE GETS HOME.
--- NOTE | 2022-04-21 13:00 | NUR ---
RN NOTES PATIENT MEDICALLY STABLE FOR DISCHARGE. VSS. DISCHARGE INSTRUCTIONS GIVEN TO PATIENT. PATIENT ABLE TO VERBALIZE UNDERSTANDING OF INSTRUCTIONS. EXIT CARE PACKET PROVIDED. ALL BELONGINGS ACCOUNTED FOR AND DOCUMENTS SIGNED. IV ACCESS REMOVED AND ID BAND REMOVED.
--- NOTE | 2022-04-21 13:15 | NUR ---
SPEAR FISHER NOTES PATIENT PICKED UP BY AND LEFT FACILITY IN PRIVATE CAR.
== END 2022-04-21 14:32 | disposition home or self-care (01) | DRG 304 ==
LOC: ER 18:50 → TELE1 22:44 → TELE-TD 04-18 04:26 → TELE1 04-20 13:23
PROVIDERS: ADMIT Student in an Organized Health Care Education/Training Program; ATTEND Internal Medicine
PROC: 0W993ZZ Drainage of Right Pleural Cavity, Percutaneous Approach (ICD-10-PCS; principal; 2022-04-17)
PROC: 5A1D70Z Performance of Urinary Filtration, Intermittent, Less than 6 Hours Per Day (ICD-10-PCS; 2022-04-18)
DX: I16.0 Hypertensive urgency (principal); U07.1 COVID-19; N18.6 End stage renal disease; I20.0 Unstable angina; J98.11 Atelectasis; J90 Pleural effusion, not elsewhere classified; D68.59 Other primary thrombophilia; I12.0 Hypertensive chronic kidney disease with stage 5 chronic kidney disease or end stage renal disease; Z79.84 Long term (current) use of oral hypoglycemic drugs; Z99.2 Dependence on renal dialysis; E11.22 Type 2 diabetes mellitus with diabetic chronic kidney disease; Z87.01 Personal history of pneumonia (recurrent); D64.9 Anemia, unspecified; E78.5 Hyperlipidemia, unspecified; Z79.899 Other long term (current) drug therapy; I48.91 Unspecified atrial fibrillation; E87.70 Fluid overload, unspecified; S91.301A Unspecified open wound, right foot, initial encounter; X58.XXXA Exposure to other specified factors, initial encounter; Y92.9 Unspecified place or not applicable
CPT/HCPCS: 36415; 36600; 71045-TC; 71250-TC; 80048-TC; 80053-TC; 82607-TC; 82728-TC; 82962-TC; 83540-TC; 83735-TC; 84100-TC; 84484-TC; 85025-TC; 85378-TC; 85610-TC; 86140-TC; 86706; 87070-TC; 87075-TC; 87102-TC; 87340; 89051-TC; 90935-TC; 93307-TC; 94799-TC; A4217; C9803; G0378; J0282; J0360; J0692; J0885; J1100; J1644; J1650; J1815; J2405; J2916; J3490; J7030; J7050; J7060; J7070

== ENCOUNTER 2022-04-27 20:06 | Inpatient (IN) | payer MEDICARE, OTHER ==
[~2022-04-27] VITALS: Ht 167.6 cm; Wt 66.7 kg
[~2022-04-27 20:06] MED LIST changes: +AMIO200T7 PO; +AMLO5TAB4 PO; +ATOR10TA PO; +METH4TAB17 PO
--- NOTE | 2022-04-27 20:20 | NUR ---
BIBRA 88 C/O SOB THAT STARTED TODAY, ON RA 88%, PT ON 4L N/C 99%. PLACED COMFORTABLY IN BED 7, VITALS CHECKED.
--- NOTE | 2022-04-27 20:25 | NUR ---
SEEN BY DR NICE AT BEDSIDE
--- NOTE | 2022-04-27 20:50 | NUR ---
COVID SWAB AND PCR DONE AND SENT TO LAB
[2022-04-27 21:14] LABS: BASOPHILS # (AUTO) 0.1 K/uL (0.0-0.2); BASOPHILS % (AUTO) 1.3 % (0.0-2.0); EOSINOPHILS % (AUTO) 2.9 % (0.0-6.0); HEMATOCRIT 25 % (39-51); HEMOGLOBIN 8.5 g/dL (13.5-17.5); LYMPHOCYTES # (AUTO) 0.6 K/uL (0.8-4.8); LYMPHOCYTES % (AUTO) 7.5 % (20.0-44.0); MEAN CORPUSCULAR HGB CONC 34 g/dl (31.0-36.0); MEAN CORPUSCULAR VOLUME 81 fL (80-96); MONOCYTES # (AUTO) 1.3 K/uL (0.1-1.30); NEUTROPHILS # (AUTO) 5.3 K/uL (1.8-8.9); NEUTROPHILS % (AUTO) 71.3 % (43.0-81.0); PLATELET COUNT (AUTO) 281 K/uL (150-450); RED BLOOD CELL COUNT(AUTO) 3.07 MIL/uL (4.5-6.0); WHITE BLOOD COUNT (AUTO) 7.4 K/uL (4.3-11.0)
[2022-04-27 21:32] LABS: POTASSIUM 4.9 mmol/L (3.5-5.1)
--- NOTE | 2022-04-27 21:36 | NUR ---
EPIC PANEL PAGED
[2022-04-27 21:37] LABS: EOSINOPHILS % (MANUAL) 2 % (0-4); LYMPHOCYTES % (MANUAL) 10 % (16-48); MONOCYTES % (MANUAL) 18 % (0-11.0); NEUTROPHILS % (MANUAL) 70 (42-76)
[2022-04-27 21:40] LABS: CREATININE 7.8 mg/dL (0.6-1.3)
[2022-04-27 21:45] LABS: BILIRUBIN,TOTAL 0.5 mg/dL (0.2-1.0); TOTAL PROTEIN, SERUM 7.9 g/dL (6.4-8.2)
--- NOTE | 2022-04-27 22:46 | NUR ---
ROOM 120-1
--- NOTE | 2022-04-27 23:16 | NUR ---
CALLED [facility]. SUNSHINE CARRILLO WILL BE HANDLING PATIENT. THEY WILL CALL ME BACK.
[2022-04-27] MEDS ORDERED: MAG HYDROX/AL HYDROX/SIMETH 30 ML UDC PO PRN (23:30)
[2022-04-27] MEDS ORDERED: Z GUARD REMEDY 4 OZ OINT TP PRN (23:30)
[2022-04-27] MEDS ORDERED: MAGNESIUM HYDROXIDE 30 ML UDC PO PRN (23:30)
[2022-04-27] MEDS ORDERED: ACETAMINOPHEN 325 MG TABLET PO PRN (23:30)
[2022-04-27] MEDS ORDERED: ZOLPIDEM TARTRATE 5 MG TABLET PO PRN (23:30)
[2022-04-27] MEDS ORDERED: methylPREDNISolone (4MG) 4 MG TABLET PO SCH (23:30)
--- NOTE | 2022-04-27 23:33 | NUR ---
REPORT GIVEN TO SUNSHINE CARRILLO.
--- NOTE | 2022-04-27 23:40 | NUR ---
telephone sales representative notes Admitted a 66 y/o male a/ox3 able to make needs known , admitted for tele status dx of hypoxic acute respiratory failure , with hx of htn esrd ([facility]) dm , had dialysis today with . pts is with left forearm av shunt . right forearm g20 heplock intact and patent.admission routine care rendered , v/s bp 192/83 hr 70 rr 18 temp 98.8. pts on 4 liters of o2 via nc sating 98 % no sob no distress noted. all needs attended too , lasix iv 60 mg given as ordered . rechecked bp 160 /66 after lasix administration. will continue to monitor pts
--- NOTE | 2022-04-27 23:45 | NUR ---
PUSHED PATIENT TO [facility].
[2022-04-27 23:48] VITALS: BP 192/83
[2022-04-28] MEDS: FUROSEMIDE 40 MG/4 ML VIAL IV SCH ×2 (00:21→10:15)
[2022-04-28] MEDS: LORAZEPAM 1 MG TABLET PO PRN (03:18)
[2022-04-28 04:00] VITALS: BP 187/83
[2022-04-28] MEDS: ONDANSETRON HCL/PF 4 MG/2 ML VIAL IVP PRN ×2 (06:29→13:06)
[2022-04-28 06:45] LABS: BASOPHILS # (AUTO) 0.1 K/uL (0.0-0.2); BASOPHILS % (AUTO) 1.4 % (0.0-2.0); EOSINOPHILS % (AUTO) 4.3 % (0.0-6.0); HEMATOCRIT 24 % (39-51); HEMOGLOBIN 8.1 g/dL (13.5-17.5); LYMPHOCYTES # (AUTO) 0.6 K/uL (0.8-4.8); LYMPHOCYTES % (AUTO) 7.7 % (20.0-44.0); MEAN CORPUSCULAR HGB CONC 34 g/dl (31.0-36.0); MEAN CORPUSCULAR VOLUME 81 fL (80-96); MONOCYTES # (AUTO) 1.2 K/uL (0.1-1.30); NEUTROPHILS # (AUTO) 5.8 K/uL (1.8-8.9); NEUTROPHILS % (AUTO) 71.6 % (43.0-81.0); PLATELET COUNT (AUTO) 280 K/uL (150-450); RED BLOOD CELL COUNT(AUTO) 2.94 MIL/uL (4.5-6.0); WHITE BLOOD COUNT (AUTO) 8.1 K/uL (4.3-11.0)
--- NOTE | 2022-04-28 06:55 | NUR ---
POWERTRAIN CALIBRATION ENGINEER NOTES PTS IN BED AWAKE ALERT X4 ABLE TO MAKE NEEDS KNOWN ON 4 LITERS OF O2 VIA NC SATING 99% ALL NEEDS ATTENDED TOO PTS C/O OF NAUSEATED ZOFRAN 4MG GIVEN ORDERED. WILL ENDORSE TO RN DAY SHIFT FOR CONTINUITY OF CARE.
[2022-04-28 07:15] LABS: CALCIUM, SERUM 8.6 mg/dL (8.5-10.1); MAGNESIUM 2.3 mg/dL (1.8-2.4); PHOSPHORUS 5.7 mg/dL (2.5-4.9); POTASSIUM 4.7 mmol/L (3.5-5.1)
[2022-04-28 07:16] LABS: CREATININE 8.8 mg/dL (0.6-1.3)
[2022-04-28 08:00] VITALS: BP 184/70
[2022-04-28] MEDS ORDERED: METOPROLOL TARTRATE 50 MG TABLET PO SCH (09:00)
[2022-04-28] MEDS ORDERED: AMLODIPINE BESYLATE 5 MG TABLET PO SCH (09:00)
[2022-04-28] MEDS: PANTOPRAZOLE 40 MG TABLET.DR PO SCH (10:15)
[2022-04-28] MEDS: SEVELAMER CARBONATE 800 MG TABLET PO SCH ×3 (10:16→17:30)
[2022-04-28] MEDS: AMLODIPINE BESYLATE 10 MG TABLET PO SCH (10:16)
[2022-04-28] MEDS: GABAPENTIN 100 MG CAPSULE PO SCH ×3 (10:17→17:31)
[2022-04-28] MEDS: AMIODARONE HCL 200 MG TABLET PO SCH ×2 (10:17→21:47)
[2022-04-28] MEDS: hydrALAZINE HCL 50 MG TABLET PO SCH ×2 (10:17→17:31)
[2022-04-28] MEDS: LINAGLIPTIN 5 MG TABLET PO SCH (10:17)
[2022-04-28] MEDS: ATORVASTATIN 10 MG TABLET PO SCH (10:19)
[2022-04-28 12:00] VITALS: BP 163/70
[2022-04-28] MEDS: APIXABAN 5 MG TABLET PO SCH ×2 (13:30→17:32)
--- NOTE | 2022-04-28 14:27 | NUR ---
PER DR SMALL, HOLD ELIQUIS FIRST DOSE UNTIL AFTER THORACENTESIS IS DONE.
[2022-04-28] MEDS: LABETALOL HCL (100MG) 100 MG TABLET PO SCH ×2 (15:45→21:47)
[2022-04-28 16:00] VITALS: BP 153/64
--- NOTE | 2022-04-28 18:45 | NUR ---
PT HAD THORACENTESIS TODAY AT 1530, 1275ML REMOVED. FLUID SENT TO LAB FOR TESTS. PT C/O ABD BLOATING TODAY, APPEARED TO FEEL BETTER AFTER THORACENTESIS.
--- NOTE | 2022-04-28 19:20 | NUR ---
RN NOTE RECEIVED PATIENT IN BED, AO X 4, IN NO ACUTE DISTRESS AT THIS TIME. RESPIRATION UNLABORED, SATURATION AT 99% ON 4L VIA NC, SR ON THE MONITOR, HR IS 78. IV LINE AT RFA 20G, PATENT AND FLUSHING WELL, NO S/S OF INFECTION OR INFILTRATION. L ARM AV FISTULA IN PLACE, THRILL AND BRUIT NOTED. SAFETY MEASURES IMPLEMENTED. PATIENT BED ALARM IS ON. HEAD OF BED ELEVATED. BED IS LOCKED, IN LOWEST POSITION AND SIDE RAILS UP. CALL LIGHT WITHIN REACH OF THE PATIENT. WILL CONTINUE TO MONITOR AND REASSESS FOR ANY CHANGES.
[2022-04-28 20:00] VITALS: BP 140/70
[2022-04-28] MEDS ORDERED: DEXTROSE 50%-WATER 50 ML DISP.SYRIN IV PRN (21:00)
[2022-04-28] MEDS: BLOOD SUGAR DIAGNOSTIC 1 EACH STRIP IN SCH (21:44)
[2022-04-28] MEDS: INSULIN REGULAR, HUMAN 100 UNIT/ML 3 ML VIAL SQ PRN (21:46)
[2022-04-28] MEDS: CLONIDINE HCL 0.1 MG TABLET PO SCH (21:48)
[2022-04-29] VITALS: BP 143/63
[2022-04-29] MEDS: LORAZEPAM 1 MG TABLET PO PRN (01:46)
[2022-04-29 04:00] VITALS: BP 144/62
[2022-04-29] MEDS: CLONIDINE HCL 0.1 MG TABLET PO SCH ×3 (05:25→22:08)
--- NOTE | 2022-04-29 07:56 | NUR ---
RN NOTE RECEIVED PATIENT IN BED, NOT ACUTE DISTRESS AT THIS TIME. NO SOB WITH O2 SAT 95% ON 4L VIA NC, SR ON THE MONITOR, HR IS 68. IV SALINE LOCK AT RFA 20G, PATENT AND FLUSHING WELL. L ARM AV FISTULA IN PLACE. SAFETY MEASURES FOLLOWED WILL CONTINUE TO MONITOR
[2022-04-29 08:00] VITALS: BP 160/69
[2022-04-29] MEDS: BLOOD SUGAR DIAGNOSTIC 1 EACH STRIP IN SCH ×4 (08:53→22:19)
[2022-04-29] MEDS: PANTOPRAZOLE 40 MG TABLET.DR PO SCH (08:54)
[2022-04-29] MEDS: ATORVASTATIN 10 MG TABLET PO SCH (08:54)
[2022-04-29] MEDS: AMIODARONE HCL 200 MG TABLET PO SCH ×2 (08:54→22:08)
[2022-04-29] MEDS: GABAPENTIN 100 MG CAPSULE PO SCH ×3 (08:54→16:51)
[2022-04-29] MEDS: hydrALAZINE HCL 50 MG TABLET PO SCH ×2 (08:54→16:52)
[2022-04-29] MEDS: SEVELAMER CARBONATE 800 MG TABLET PO SCH ×3 (08:55→16:51)
[2022-04-29] MEDS: AMLODIPINE BESYLATE 10 MG TABLET PO SCH (08:55)
[2022-04-29] MEDS: APIXABAN 5 MG TABLET PO SCH ×2 (08:56→16:54)
[2022-04-29] MEDS: FUROSEMIDE 40 MG/4 ML VIAL IV SCH (08:58)
[2022-04-29] MEDS: LINAGLIPTIN 5 MG TABLET PO SCH (09:52)
[2022-04-29] MEDS: LABETALOL HCL (100MG) 100 MG TABLET PO SCH ×2 (09:52→22:08)
[2022-04-29] MEDS ORDERED: EPOETIN ALFA (10,000 UNIT) 10,000 UNIT/ML VIAL IV ONE (10:00)
[2022-04-29 12:00] VITALS: BP 160/69
[2022-04-29] MEDS: INSULIN REGULAR, HUMAN 100 UNIT/ML 3 ML VIAL SQ PRN ×3 (12:07→22:20)
--- NOTE | 2022-04-29 12:37 | NUR ---
Holding all 1300 meds until HD complete. Will give afterwards.
--- NOTE | 2022-04-29 12:40 | NUR ---
lab reports that pt is COVID POSITIVE.
[2022-04-29 16:00] VITALS: BP 131/58
--- NOTE | 2022-04-29 19:00 | NUR ---
RN CLOSING NOTE PT IS RESTING IN BED A/O X4, ON 4L VIA NC SATING AT 96%. TELE MONITOR READS SR 60-70'S. IV ACCESS NOTED AT R FA 20G, AND L ARM AV FISTULA. ALL SAFETY MEASURES IN PLACE, WILL ENDORSE TO LASTING ROOM SUPERVISOR NURSE FOR MYRA.
--- NOTE | 2022-04-29 19:20 | NUR ---
RN NOTE RECEIVED PATIENT IN BED, AO X 4, IN NO ACUTE DISTRESS AT THIS TIME. RESPIRATION UNLABORED, SATURATION AT 98% ON 4L VIA NC, SR ON THE MONITOR, HR IS 63. IV LINE AT RFA 20G, PATENT AND FLUSHING WELL, NO S/S OF INFECTION OR INFILTRATION. L ARM AV FISTULA IN PLACE, THRILL AND BRUIT NOTED. APPROPRIATE ISOLATION PRECAUTIONS MAINTAINED. SAFETY MEASURES IMPLEMENTED. PATIENT BED ALARM IS ON. HEAD OF BED ELEVATED. BED IS LOCKED, IN LOWEST POSITION AND SIDE RAILS UP. CALL LIGHT WITHIN REACH OF THE PATIENT. WILL CONTINUE TO MONITOR AND REASSESS FOR ANY CHANGES.
[2022-04-29 20:00] VITALS: BP 162/75
[2022-04-30] VITALS: BP 155/66
[2022-04-30] MEDS: LORAZEPAM 1 MG TABLET PO PRN (00:39)
[2022-04-30 04:00] VITALS: BP 163/69
[2022-04-30] MEDS: CLONIDINE HCL 0.1 MG TABLET PO SCH ×3 (05:11→21:21)
--- NOTE | 2022-04-30 07:20 | NUR ---
MS RN opening notes: RECEIVED PATIENT IN BED,asleep per report AO X 4, IN NO ACUTE DISTRESS AT THIS TIME. RESPIRATION UNLABORED, SATURATION AT 98% ON 4L VIA NC, SR ON THE MONITOR, HR IS 63. IV LINE AT RFA 20G, PATENT AND FLUSHING WELL, NO S/S OF INFECTION OR INFILTRATION. L ARM AV FISTULA IN PLACE, THRILL AND BRUIT NOTED. APPROPRIATE ISOLATION PRECAUTIONS MAINTAINED. SAFETY MEASURES IMPLEMENTED. PATIENT BED ALARM IS ON. HEAD OF BED ELEVATED. BED IS LOCKED, IN LOWEST POSITION AND SIDE RAILS UP. CALL LIGHT WITHIN REACH OF THE PATIENT. WILL CONTINUE TO MONITOR AND REASSESS FOR ANY CHANGES.
[2022-04-30] MEDS: BLOOD SUGAR DIAGNOSTIC 1 EACH STRIP IN SCH ×4 (07:56→21:36)
[2022-04-30] MEDS: INSULIN REGULAR, HUMAN 100 UNIT/ML 3 ML VIAL SQ PRN ×3 (07:58→21:41)
[2022-04-30 08:00] VITALS: BP 145/58
[2022-04-30] MEDS: FUROSEMIDE 40 MG/4 ML VIAL IV SCH (08:55)
[2022-04-30] MEDS: SEVELAMER CARBONATE 800 MG TABLET PO SCH ×3 (08:55→17:17)
[2022-04-30] MEDS: AMIODARONE HCL 200 MG TABLET PO SCH ×2 (08:56→21:22)
[2022-04-30] MEDS: LINAGLIPTIN 5 MG TABLET PO SCH (08:56)
[2022-04-30] MEDS: hydrALAZINE HCL 50 MG TABLET PO SCH ×2 (08:56→17:17)
[2022-04-30] MEDS: GABAPENTIN 100 MG CAPSULE PO SCH ×3 (08:56→17:18)
[2022-04-30] MEDS: LABETALOL HCL (100MG) 100 MG TABLET PO SCH ×2 (08:57→21:22)
[2022-04-30] MEDS: ATORVASTATIN 10 MG TABLET PO SCH (08:57)
[2022-04-30] MEDS: AMLODIPINE BESYLATE 10 MG TABLET PO SCH (08:57)
[2022-04-30] MEDS: APIXABAN 5 MG TABLET PO SCH ×2 (08:57→17:20)
[2022-04-30] MEDS: PANTOPRAZOLE 40 MG TABLET.DR PO SCH (08:58)
[2022-04-30 16:00] VITALS: BP 131/54
--- NOTE | 2022-04-30 19:30 | NUR ---
AIR MARSHAL CLOSING NOTE RECEIVED PATIENT IN BED, NOT ACUTE DISTRESS AT THIS TIME. NO SOB WITH O2 SAT 95% ON 4L VIA NC, S. IV SALINE LOCK AT RFA 20G, PATENT AND FLUSHING WELL. L ARM AV FISTULA WITH THRILL AND BRUIT. SAFETY MEASURES FOLLOWED WILL CONTINUE TO MONITOR
[2022-04-30 20:00] VITALS: BP 139/58
--- NOTE | 2022-04-30 20:22 | NUR ---
MS RN Opening Note Pt received in bed, awake and watching TV, A&O x4, calm, cooperative. Pt currently on 4L NC with O2sat 96%, no s/s of resp distress, no SOB, non-labored and equal breathing. VSS, will monitor as needed. Pt has left arm fistula, bruit auscultated and thrill palpated; appears intact and patent. IV access on right forearm 20G intact and patent, currently has no fluids/meds running at the moment; IV intact and patent, no s/s of infiltration, flushes easily with no resistance. Bed in lowest position, call light within reach, side rails up x2. Will continue to monitor throughout the night.
[2022-05-01] MEDS: LORAZEPAM 1 MG TABLET PO PRN ×2 (01:06→22:33)
--- NOTE | 2022-05-01 01:09 | NUR ---
RN Note Pt reports of feeling anxious and appears restless. Pt requests for Ativan. Pt administered 1 mg of Ativan. Will monitor for effectiveness.
[2022-05-01 04:00] VITALS: BP 142/56
[2022-05-01] MEDS: CLONIDINE HCL 0.1 MG TABLET PO SCH ×3 (04:43→21:26)
--- NOTE | 2022-05-01 04:44 | NUR ---
RN Note Pt complains of 4/10 headache that's described as throbbing and requests for tylenol. Pt administered 650 mg of Tylenol.
--- NOTE | 2022-05-01 06:28 | NUR ---
MS RN Closing Note Pt remains in bed, awake, calm, cooperative. Pt noted to stand up from bed occasionally and walk around room with walker; pt able ambulate with steady gait. Pt remains on 4L NC with O2sat 100% throughout the night, no s/s of resp distress, no SOB, non-labored and equal breathing. VSS during the night with no significant findings. Left arm fistula intact and patent, bruit auscultated and thrill palpated. IV access on right forearm 20G intact and patent, no fluids/meds running at the moment; no s/s of infiltration, flushes easily with no resistance. Bed in lowest position, call light within reach, side rails up x2. Will endorse to dayshift nurse to continue care.
--- NOTE | 2022-05-01 07:30 | NUR ---
MS OPENING NOTE PATIENT IS RESTING IN BED A/O X4, SYRIAC SPEAKER ABLE TO MAKE NEEDS KNOWN. PATIENT IS ON 4L VIA NC SATING AT 97%. PATIENT IS AMBULATORY AND USES WALKER FOR ASSISTANCE. IV ACCESS NOTED AT R FA 20 GAUGE AND LEFT ARM AV FISTULA. PATIENT IS COVID POSITIVE.ISOLATION PRECAUTIONS IN PLACE.ALL SAFETY MEASURES IN PLACE, BED LOCKED IN LOWEST POSITION, SIDE RAILS UP X2 , CALL LIGHT AND BEDSIDE TABLE WITHIN EASY REACH.WILL CONTINUE TO MONITOR
[2022-05-01] MEDS: BLOOD SUGAR DIAGNOSTIC 1 EACH STRIP IN SCH ×4 (08:02→22:27)
[2022-05-01] MEDS: INSULIN REGULAR, HUMAN 100 UNIT/ML 3 ML VIAL SQ PRN ×3 (08:07→22:29)
[2022-05-01] MEDS: GABAPENTIN 100 MG CAPSULE PO SCH ×3 (08:56→16:45)
[2022-05-01] MEDS: LINAGLIPTIN 5 MG TABLET PO SCH (08:56)
[2022-05-01] MEDS: FUROSEMIDE 40 MG/4 ML VIAL IV SCH (08:56)
[2022-05-01] MEDS: ATORVASTATIN 10 MG TABLET PO SCH (08:57)
[2022-05-01] MEDS: hydrALAZINE HCL 50 MG TABLET PO SCH ×2 (08:57→16:46)
[2022-05-01] MEDS: SEVELAMER CARBONATE 800 MG TABLET PO SCH ×3 (08:58→16:46)
[2022-05-01] MEDS: AMLODIPINE BESYLATE 10 MG TABLET PO SCH (08:58)
[2022-05-01] MEDS: LABETALOL HCL (100MG) 100 MG TABLET PO SCH ×2 (08:58→21:25)
[2022-05-01] MEDS: PANTOPRAZOLE 40 MG TABLET.DR PO SCH (08:58)
[2022-05-01] MEDS: AMIODARONE HCL 200 MG TABLET PO SCH ×2 (08:59→21:25)
[2022-05-01] MEDS: APIXABAN 5 MG TABLET PO SCH ×2 (09:00→16:45)
[2022-05-01 12:00] VITALS: BP 135/57
--- NOTE | 2022-05-01 18:49 | NUR ---
MS RN CLOSING NOTE PATIENT IS RESTING IN BED A/O X4, IVORIAN SPEAKER ABLE TO MAKE NEEDS KNOWN. PATIENT IS ON 2L VIA NC SATING AT 95%. PATIENT IS AMBULATORY AND USES WALKER FOR ASSISTANCE. IV ACCESS NOTED AT R FA 20 GAUGE AND LEFT ARM AV FISTULA. PATIENT IS COVID POSITIVE.ISOLATION PRECAUTIONS IN PLACE. ALL DUE MEDS GIVEN ORDERED.ALL SAFETY MEASURES IN PLACE, BED LOCKED IN LOWEST POSITION, SIDE RAILS UP X2 , CALL LIGHT AND BEDSIDE TABLE WITHIN EASY REACH.WILL ENDORSE FOR MYRA.
--- NOTE | 2022-05-01 19:00 | NUR ---
RN pm note Patient is alert , oriented times 4, in bed breathing unlabored , on 2L of the O2 via N/c, no signs of the distress. Patient ambulated with walker, on renal diet, has IV access of the RFA 20 gait, left arm AV shunt. Bed is in lowest position, bed side rails are up , call ;light within reach, will continue to monitor
--- NOTE | 2022-05-01 19:06 | NUR ---
RN NOTES PATIENT OXYGEN SATURATION DROPS TO 86% ON ROOM AIR.
[2022-05-01 20:00] VITALS: BP 149/64
[2022-05-02 04:00] VITALS: BP 140/72
[2022-05-02] MEDS: CLONIDINE HCL 0.1 MG TABLET PO SCH (05:07)
--- NOTE | 2022-05-02 06:25 | NUR ---
RN closing note Patient is alert , oriented times 4, was sleeping at night with O 2 at 2 L via n/c, O 2 sat 100 % . , IV access at RFA 20 g , left arm AV shunt. Patient has rupture blister of the sacrum area, cleansed with NS , pat dried , Mepilex applied. All meds was administered . bed is at lowest position, bed swide rails are up , call light within reach .
--- NOTE | 2022-05-02 07:30 | NUR ---
RN OPENING NOTE PATIENT IS RESTING IN BED A/O X4, TAMAZIGHT SPEAKER ABLE TO MAKE NEEDS KNOWN. PATIENT IS ON 2L VIA NC TOLERATING WELL WITH AN O2 SAT OF 97%. PATIENT IS AMBULATORY AND USES WALKER WITH ASSISTANCE. IV ACCESS NOTED AT RFA G#20, AND WITH LEFT ARM AV FISTULA. PATIENT IS COVID POSITIVE.ISOLATION PRECAUTIONS IN PLACE.ALL SAFETY MEASURES IN PLACE, BED LOCKED IN LOWEST POSITION, SIDE RAILS UP X2 , CALL LIGHT AND BEDSIDE TABLE WITHIN EASY REACH.WILL CONTINUE TO MONITOR.
[2022-05-02] MEDS: BLOOD SUGAR DIAGNOSTIC 1 EACH STRIP IN SCH ×2 (08:01→12:06)
[2022-05-02] MEDS: FUROSEMIDE 40 MG/4 ML VIAL IV SCH (08:12)
[2022-05-02] MEDS: LINAGLIPTIN 5 MG TABLET PO SCH (08:13)
[2022-05-02] MEDS: AMLODIPINE BESYLATE 10 MG TABLET PO SCH (08:13)
[2022-05-02] MEDS: PANTOPRAZOLE 40 MG TABLET.DR PO SCH (08:13)
[2022-05-02] MEDS: ATORVASTATIN 10 MG TABLET PO SCH (08:13)
[2022-05-02] MEDS: APIXABAN 5 MG TABLET PO SCH (08:15)
[2022-05-02] MEDS: SEVELAMER CARBONATE 800 MG TABLET PO SCH (08:15)
[2022-05-02] MEDS: GABAPENTIN 100 MG CAPSULE PO SCH (08:15)
[2022-05-02] MEDS: LABETALOL HCL (100MG) 100 MG TABLET PO SCH (08:16)
[2022-05-02] MEDS: AMIODARONE HCL 200 MG TABLET PO SCH (08:18)
[2022-05-02 08:20] VITALS: BP 147/60
[2022-05-02] MEDS: hydrALAZINE HCL 50 MG TABLET PO SCH (08:20)
[2022-05-02] MEDS: INSULIN REGULAR, HUMAN 100 UNIT/ML 3 ML VIAL SQ PRN ×2 (08:23→12:08)
[2022-05-02] MEDS ORDERED: APIX5TAB PO (11:46)
--- NOTE | 2022-05-02 13:08 | NUR ---
ORACLE DISTRIBUTION CONSULTANT NOTE: REVIEWED DISCHARGEINSTRUCTION WITH PT. PT VERBALIZED UNDERSTANDING. PT DISCHARGED VIA WHEELCHAIR WITH BELONGING, PRESCRIPTIONS AND INSTRUCTIONS. IV AND TELEMETRY PREVIOUSLY DISCONTINUED. PT LEFT HOSPITAL TO HOME SELF CARE.
== END 2022-05-02 13:05 | disposition home or self-care (01) | DRG 291 ==
LOC: ER 20:11 → TELE1 23:00 → MEDSG1 04-29 07:51
PROVIDERS: ADMIT Family Medicine; ATTEND Internal Medicine
PROC: 0W993ZZ Drainage of Right Pleural Cavity, Percutaneous Approach (ICD-10-PCS; 2022-04-28)
PROC: 5A1D70Z Performance of Urinary Filtration, Intermittent, Less than 6 Hours Per Day (ICD-10-PCS; principal; 2022-04-29)
DX: I13.2 Hypertensive heart and chronic kidney disease with heart failure and with stage 5 chronic kidney disease, or end stage renal disease (principal); J96.01 Acute respiratory failure with hypoxia; U07.1 COVID-19; N18.6 End stage renal disease; I50.33 Acute on chronic diastolic (congestive) heart failure; E87.1 Hypo-osmolality and hyponatremia; E44.1 Mild protein-calorie malnutrition; J90 Pleural effusion, not elsewhere classified; D68.59 Other primary thrombophilia; I16.1 Hypertensive emergency; E11.22 Type 2 diabetes mellitus with diabetic chronic kidney disease; D63.8 Anemia in other chronic diseases classified elsewhere; Z79.84 Long term (current) use of oral hypoglycemic drugs; Z79.899 Other long term (current) drug therapy; E78.5 Hyperlipidemia, unspecified; E11.65 Type 2 diabetes mellitus with hyperglycemia; E88.09 Other disorders of plasma-protein metabolism, not elsewhere classified; I48.0 Paroxysmal atrial fibrillation; Z99.2 Dependence on renal dialysis; Z87.891 Personal history of nicotine dependence; Z83.3 Family history of diabetes mellitus; Z82.49 Family history of ischemic heart disease and other diseases of the circulatory system
CPT/HCPCS: 36415; 71045-TC; 80048-TC; 80053-TC; 80061-TC; 82962-TC; 83605-TC; 83735-TC; 83880; 84100-TC; 84155-TC; 85025-TC; 85610-TC; 87040-TC; 87070-TC; 87075-TC; 87081-TC; 87102-TC; 87116; 87206; 89051-TC; 90935-TC; 94799-TC; C9803; G0378; J0885; J1815; J1940; J2405; J7030; U0003

== ENCOUNTER 2022-05-31 17:23 | Inpatient (IN) | payer MEDICARE, OTHER ==
[~2022-05-31] VITALS: Ht 167.6 cm; Wt 66.7 kg
[~2022-05-31 17:23] MED LIST changes: +APIX5TAB PO; -METH4TAB17 PO
--- NOTE | 2022-05-31 17:57 | NUR ---
BIBRA80 FROM HOME C/O WORSENING SOB X TODAY. PT OXYGEN SATUARTION WAS 94% ROOM AIR AND 98% ON 2L NC. PT RECIVED DIALYSIS YESTERDAY (, , SUN) AND HAS ACCESS ON HIS L ARM. PT IS A7OX4. ATTACHED TO MONITOR, BLOOD PRESSURE IS ELEVATED PT STATED HE TAKES METOPROLOL TWICE A DAY AND IS COMPLIANT. DR NICE AT BEDSIDE, AWAITING ORDERS.
--- NOTE | 2022-05-31 18:01 | NUR ---
IV ESTABLISHED R FA 18G. SALINE IS LOCKED.
--- NOTE | 2022-05-31 18:03 | NUR ---
X RAY AT BEDSIDE
[2022-05-31 18:19] LABS: ABG BASE EXCESS 6.6 mmol/L; ABG PH 7.458 (7.350-7.450); ABG PO2 61.9 mmHg (75.0-100.0); COHb 1.4 % (0.5-1.5); MetHb 0.5 % (0.0-1.5); O2Hb 89.9 % (94.0-97.0); SITE, ABG Right Radial; VENT MODE, BG 3L NC
--- NOTE | 2022-05-31 19:02 | NUR ---
COVID TEST COLLECTED AND SENT
--- NOTE | 2022-05-31 19:32 | NUR ---
report given to nurse Michel for mando
[2022-05-31 19:36] LABS: CALCIUM, SERUM 9.5 mg/dL (8.5-10.1); CARBON DIOXIDE 28 mmol/L (21-32); CHLORIDE 100 mmol/L (98-107); GLUCOSE 149 mg/dL (74-106); POTASSIUM 4.2 mmol/L (3.5-5.1); SODIUM SERUM 138 mmol/L (136-145); UREA NITROGEN, BLOOD 43 mg/dL (7-18)
[2022-05-31 19:39] LABS: CREATININE 9.4 mg/dL (0.6-1.3)
--- NOTE | 2022-05-31 19:39 | NUR ---
CREATININE 9.4
[2022-05-31 20:18] LABS: BASOPHILS # (AUTO) 0.2 K/uL (0.0-0.2); BASOPHILS % (AUTO) 1.9 % (0.0-2.0); EOSINOPHILS % (AUTO) 8.3 % (0.0-6.0); HEMATOCRIT 27 % (39-51); HEMOGLOBIN 8.7 g/dL (13.5-17.5); LYMPHOCYTES # (AUTO) 1.4 K/uL (0.8-4.8); LYMPHOCYTES % (AUTO) 15.7 % (20.0-44.0); MEAN CORPUSCULAR HGB CONC 32 g/dl (31.0-36.0); MEAN CORPUSCULAR VOLUME 81 fL (80-96); MONOCYTES # (AUTO) 0.8 K/uL (0.1-1.30); MONOCYTES % (AUTO) 8.7 % (2.0-12.0); NEUTROPHILS # (AUTO) 5.7 K/uL (1.8-8.9); NEUTROPHILS % (AUTO) 65.4 % (43.0-81.0); PLATELET COUNT (AUTO) 226 K/uL (150-450); WHITE BLOOD COUNT (AUTO) 8.7 K/uL (4.3-11.0)
--- NOTE | 2022-05-31 20:29 | NUR ---
MILLIE PAGED PER DR NICE
--- NOTE | 2022-05-31 20:54 | NUR ---
BED 322 -1
[2022-05-31 20:55] LABS: ALANINE AMINOTRANSFERASE 14 U/L (12-78); ALBUMIN 3.1 g/dL (3.4-5.0); ALKALINE PHOSPHATASE 128 U/L (46-116); ASPARTATE AMINOTRANSFERASE 19 U/L (15-37); BILIRUBIN,DIRECT 0.2 mg/dL (0.0-0.2); BILIRUBIN,TOTAL 0.5 mg/dL (0.2-1.0); TOTAL PROTEIN, SERUM 8.2 g/dL (6.4-8.2)
[2022-05-31 21:03] LABS: BAND % (MANUAL) 2 % (0.0-5.0); EOSINOPHILS % (MANUAL) 8 % (0-4); LYMPHOCYTES % (MANUAL) 6 % (16-48); MONOCYTES % (MANUAL) 5 % (0-11.0); NEUTROPHILS % (MANUAL) 79 (42-76)
--- NOTE | 2022-05-31 21:52 | NUR ---
REPORT GIVEN TO BISMARK
[2022-05-31 22:26] VITALS: BP 187/74
[2022-05-31] MEDS ORDERED: INSULIN REGULAR, HUMAN 100 UNIT/ML 3 ML VIAL SQ PRN (22:30)
[2022-05-31] MEDS ORDERED: ACETAMINOPHEN 325 MG TABLET PO PRN (22:30)
[2022-05-31] MEDS ORDERED: Z GUARD REMEDY 4 OZ OINT TP PRN (22:30)
[2022-05-31] MEDS ORDERED: hydrALAZINE HCL IV 20 MG VIAL IV PRN (22:30)
[2022-05-31] MEDS ORDERED: DEXTROSE 50%-WATER 50 ML DISP.SYRIN IV PRN (22:30)
[2022-05-31] MEDS ORDERED: LORAZEPAM 1 MG TABLET PO PRN (22:30)
--- NOTE | 2022-05-31 22:30 | NUR ---
from ER a/OX4 smiling cooperative skin wrm and dry dialysis patient cath left f/a last dialysis tues pt noted to have poor eye sight uses a magnifing glass speech clear BP 187/74 hr 64 ambulates Blood sugar via finger stick 127
--- NOTE | 2022-05-31 22:33 | NUR ---
PT TRANSPORTED TO ROOM 322-2 ON CARDIAC PER ACLS
[2022-05-31 23:13] VITALS: BP 187/74
--- NOTE | 2022-06-01 00:04 | NUR ---
B/P 187/74 HR 64 IV Hydralazine 0.5 mg given pt SR on the front desk monitor denies chest pain SOB with exertion 02 on 2LITERS sats 92%
[2022-06-01] MEDS ORDERED: POLYETHYLENE GLYCOL 3350 17 GM POWD.PACK PO SCH (01:30)
[2022-06-01] MEDS ORDERED: POLYETHYLENE GLYCOL 3350 17 GM POWD.PACK PO ONE (02:00)
[2022-06-01 04:00] VITALS: BP_SYST 152; BP_SYST 168; BP_DIAS 63; BP_DIAS 70
--- NOTE | 2022-06-01 05:10 | NUR ---
CLOSING NOTES: ADMITTED LAST NIGHT 05/31 FROM THE ER DX. SOB NEEDING 02 3 LITERS TO HAVE SATS 90 - 93% C/O CONSTIPATION DAUGHTER WAS CALLED BY THE PATIENT AND THEN SHE CALLED ME. SHE STATED THAT HER FATHER WAS UNCOMFORTABLE AND WAS CONSTIPATED. TEXT JACKSON AND GAVE A DOSE OF MIRALAX WITH 8 OZ H20. NO STOOL YET THIS SHIFT. ATIVAN REQUISTED BLOOD PRESSURE ELEVATED MD ROBERTS MEDICATED FOR B/P ABOVE 170 X1 AND EFFECTIVE HEMADIALYSIS ORDERED FOR TODAY
[2022-06-01] MEDS: BLOOD SUGAR DIAGNOSTIC 1 EACH STRIP IN SCH ×4 (06:09→21:20)
--- NOTE | 2022-06-01 07:44 | NUR ---
RN OPENING NOTE PATIENT AWAKE IN BED RESTING. A/O X4. NO S/S OF PAIN NOTED AT THIS TIME. ON 2L OXYGEN VIA NC, NO DISTRESS OR SHORTNESS OF BREATH NOTED. IV ACCESS L ARM, INTACT, PATENT AND FLUSHING WELL. PATIENT ON EXTERNAL RN MANAGED CARE WITH CURRENT READING OF SR AND HR OF 61, NO CARDIAC DISTRESS NOTED. FALL AND SAFETY MEASURES IN PLACE, BED ALARM ON, BED IN LOW AND LOCK POSITION, CALL LIGHT AND TABLE WITHIN EASY REACH, SIDE RAILS UP X2. WILL CONTINUE TO MONITOR.
[2022-06-01 08:39] LABS: CALCIUM, SERUM 9.8 mg/dL (8.5-10.1); MAGNESIUM 2.7 mg/dL (1.8-2.4); PHOSPHORUS 6.1 mg/dL (2.5-4.9); POTASSIUM 4.5 mmol/L (3.5-5.1)
[2022-06-01] MEDS: POLYETHYLENE GLYCOL 3350 17 GM POWD.PACK PO SCH (08:43)
[2022-06-01 08:44] LABS: CREATININE 10.1 mg/dL (0.6-1.3)
[2022-06-01] MEDS: PANTOPRAZOLE 40 MG TABLET.DR PO SCH (08:44)
[2022-06-01] MEDS: ATORVASTATIN 10 MG TABLET PO SCH (08:44)
[2022-06-01] MEDS: AMLODIPINE BESYLATE 10 MG TABLET PO SCH (08:44)
[2022-06-01] MEDS: METOPROLOL TARTRATE 50 MG TABLET PO SCH ×2 (08:45→21:31)
[2022-06-01] MEDS: AMIODARONE HCL 200 MG TABLET PO SCH ×2 (08:45→21:00)
[2022-06-01] MEDS: hydrALAZINE HCL 50 MG TABLET PO SCH ×2 (08:46→17:24)
[2022-06-01] MEDS: SEVELAMER CARBONATE 800 MG TABLET PO SCH ×3 (08:46→17:25)
[2022-06-01] MEDS: GABAPENTIN 100 MG CAPSULE PO SCH ×3 (08:46→17:27)
[2022-06-01 08:49] LABS: BASOPHILS # (AUTO) 0.1 K/uL (0.0-0.2); BASOPHILS % (AUTO) 1.8 % (0.0-2.0); EOSINOPHILS % (AUTO) 8.9 % (0.0-6.0); HEMATOCRIT 25 % (39-51); HEMOGLOBIN 8.1 g/dL (13.5-17.5); LYMPHOCYTES # (AUTO) 0.8 K/uL (0.8-4.8); LYMPHOCYTES % (AUTO) 12.2 % (20.0-44.0); MEAN CORPUSCULAR HGB CONC 33 g/dl (31.0-36.0); MEAN CORPUSCULAR VOLUME 81 fL (80-96); MONOCYTES # (AUTO) 0.7 K/uL (0.1-1.30); MONOCYTES % (AUTO) 9.8 % (2.0-12.0); NEUTROPHILS # (AUTO) 4.7 K/uL (1.8-8.9); NEUTROPHILS % (AUTO) 67.3 % (43.0-81.0); PLATELET COUNT (AUTO) 218 K/uL (150-450); RED BLOOD CELL COUNT(AUTO) 3.08 MIL/uL (4.5-6.0); WHITE BLOOD COUNT (AUTO) 6.9 K/uL (4.3-11.0)
[2022-06-01] MEDS ORDERED: HEPARIN SODIUM, PORCINE 5000 UNITS/1 ML VIAL SQ SCH (09:00)
[2022-06-01] MEDS ORDERED: AMLODIPINE BESYLATE 5 MG TABLET PO SCH (09:00)
[2022-06-01] MEDS ORDERED: APIXABAN 5 MG TABLET PO SCH (09:00)
[2022-06-01] MEDS: ONDANSETRON HCL/PF 4 MG/2 ML VIAL IVP PRN ×2 (11:51→21:31)
[2022-06-01 15:46] LABS: BAND % (MANUAL) 3 % (0.0-5.0)
[2022-06-01 15:47] LABS: EOSINOPHILS % (MANUAL) 6 % (0-4)
[2022-06-01 15:48] LABS: LYMPHOCYTES % (MANUAL) 10 % (16-48); MONOCYTES % (MANUAL) 5 % (0-11.0); NEUTROPHILS % (MANUAL) 76 (42-76)
--- NOTE | 2022-06-01 18:42 | NUR ---
RN CLOSING NOTE PATIENT AWAKE IN BED RESTING. A/O X4. NO S/S OF PAIN NOTED AT THIS TIME. ON 3L OXYGEN VIA NC, NO DISTRESS OR SHORTNESS OF BREATH NOTED. IV ACCESS L ARM, INTACT, PATENT AND FLUSHING WELL. PATIENT ON EXTERNAL APARTMENT PROPERTY MANAGER WITH CURRENT READING OF SR AND HR OF 62, NO CARDIAC DISTRESS NOTED. FALL AND SAFETY MEASURES IN PLACE, BED ALARM ON, BED IN LOW AND LOCK POSITION, CALL LIGHT AND TABLE WITHIN EASY REACH, SIDE RAILS UP X2. PATIENT WOULD LIKE TO GO HOME TOMORROW BECAUSE HER DAUGHTER IS GETTING TOMORROW, PLEASE CALL US [facility] TOMORROW FOR US GUIDED THORACENTESIS. WILL ENDORSE TO FIRE SERVICES PLUMBER.
--- NOTE | 2022-06-01 19:54 | NUR ---
RECEIVING NOTES: ALERT AND ORIENTATED X4 TALKING ABOUT HIS EXPERIENCE HERE AT THE HOSPITAL AND HAVING A THORACENTESIS TOMORROW AND HIS DTRS WEDDING TOMORROW. I CALLED [facility] AND LEFT MESSAGE REGARDING TO POSSIBLY DO HIS [facility] THORACENTISIS FIRST THING IN THE AM MESSAGE TOLD TO THE PATIENT
[2022-06-01 19:57] VITALS: BP 152/63
[2022-06-02] VITALS: BP 144/62
[2022-06-02 04:00] VITALS: BP 167/71
--- NOTE | 2022-06-02 05:14 | NUR ---
CLOSING NOTES: ALERT AND ORIENTATED X4 SCHEDULED FOR RIGHT THORACENTISIS TODAY CONSENT IS SIGNED U/S AWARE TO TRY TO DO HIS THORACENTISIS EARLY WAER O2 3 LITERS SAT 96 -97 % DESATS W/O 02 NO SOB THRU THE NIGHT
[2022-06-02] MEDS: BLOOD SUGAR DIAGNOSTIC 1 EACH STRIP IN SCH (06:11)
--- NOTE | 2022-06-02 07:18 | NUR ---
MS RN OPENING NOTE RECEIVED PATIENT IN BED RESTING. A/O X4. NO S/S OF PAIN NOTED AT THIS TIME. ON 2L OXYGEN VIA NC, NO DISTRESS OR SHORTNESS OF BREATH NOTED. IV ACCESS RIGHT FOREARM G 18, INTACT, PATENT AND FLUSHING WELL. PATIENT ON EXTERNAL DELINQUENCY COUNSELOR WITH CURRENT READING OF SR AT OF 64 BPM, NO CARDIAC DISTRESS NOTED. FALL AND SAFETY MEASURES IN PLACE, BED ALARM ON, BED IN LOW AND LOCK POSITION, CALL LIGHT AND TABLE WITHIN EASY REACH, SIDE RAILS UP X2. WILL CONTINUE TO MONITOR.
[2022-06-02 08:00] VITALS: BP 153/69
[2022-06-02] MEDS: POLYETHYLENE GLYCOL 3350 17 GM POWD.PACK PO SCH (08:47)
[2022-06-02] MEDS: hydrALAZINE HCL 50 MG TABLET PO SCH (08:48)
[2022-06-02] MEDS: ATORVASTATIN 10 MG TABLET PO SCH (08:48)
[2022-06-02] MEDS: GABAPENTIN 100 MG CAPSULE PO SCH (08:49)
[2022-06-02] MEDS: METOPROLOL TARTRATE 50 MG TABLET PO SCH (08:49)
[2022-06-02 08:50] VITALS: BP 153/69
[2022-06-02] MEDS: PANTOPRAZOLE 40 MG TABLET.DR PO SCH (08:50)
[2022-06-02] MEDS: AMLODIPINE BESYLATE 10 MG TABLET PO SCH (08:50)
[2022-06-02] MEDS: SEVELAMER CARBONATE 800 MG TABLET PO SCH (08:50)
[2022-06-02] MEDS: AMIODARONE HCL 200 MG TABLET PO SCH (08:50)
--- NOTE | 2022-06-02 09:33 | NUR ---
MS RN NOTE PATIENT WITH ORDER FOR HD TODAY UNDER DR. LOUIS. PATIENT REFUSED TO HAVE DIALYSIS, HE SAID BECAUSE HE ALREADY HAD ONE YESTERDAY. HD NURSE CHRIS ROBERTS. WILL CONTINUE TO MONITOR PATIENT.
--- NOTE | 2022-06-02 09:54 | NUR ---
MS RN NOTE RECEIVED A CALL FROM ULTRASOUND DEPARTMENT NITA, AND SHE SAID THEY CAN'T PUSH THROUGH WITH THE THORACENTESIS BECAUSE PATIENT HAD BLOOD THINNER YESTERDAY AND THEY USUALLY REQUIRE PATIENTS TO BE OFF OF IT FOR AT LEAST [address] FIELD NOTIFIED. ALSO NOTIFIED PATIENT REFUSED HD TODAY AND ALSO PATIENT'S DESIRE TO GO HOME BECAUSE IT'S HIS DAUGHTER'S [place]ING TODAY. MD SAID HE CANT CLEAR THE PATIENT FOR DISCHARGE AND IF INSISTENT TO GO HOME, THEN HE CAN SIGNS AMA IF HE WANTS TO. REINFORCED TEACHINGS TO PATIENT AND PATIENT VERBALIZED UNDERSTANDING AND APPRECIATION. DR. GUZMAN NOTIFIED WELL. WILL CONTINUE TO MONITOR PATIENT.
--- NOTE | 2022-06-02 10:21 | NUR ---
MS RN NOTE PATIENT WENT HOME AGAINST MEDICAL [facility]VISE. RE-EDUCATION DONE REGARDING POSSIBLE REPERCUSSIONS OF ACTION. VERBALIZED UNDERSTANDING AND APPRECIATION. AMA FORM SIGNED. REFUSED TO TAKE ANY FORMS. PATIENT VERBALIZED FRUSTRATION ABOUT PROCEDURE NOT PUSHING THROUGH. EXPLAINED SITUATION BUT WAS VERY DISMISSIVE. IV ACCESS REMOVED AND COVERED WITH DRY DRESSING. PATIENT VERY ANXIOUS TO GO HOME. MD NOTIFIED OF PATIENT GOING AMA. PATIENT ACCOMPANIED TO [facility] ON A WHEELCHAIR. IN STABLE CONDITION. ENDORSED ACCORDINGLY.
== END 2022-06-02 10:15 | disposition left against medical advice (07) | DRG 291 ==
LOC: ER 17:26 → TELE 20:57 → MED 06-02 08:58
PROVIDERS: ADMIT Nurse Practitioner Family; ATTEND Internal Medicine
PROC: 5A1D70Z Performance of Urinary Filtration, Intermittent, Less than 6 Hours Per Day (ICD-10-PCS; principal; 2022-05-31)
DX: I13.2 Hypertensive heart and chronic kidney disease with heart failure and with stage 5 chronic kidney disease, or end stage renal disease (principal); I50.33 Acute on chronic diastolic (congestive) heart failure; J96.01 Acute respiratory failure with hypoxia; N18.6 End stage renal disease; J18.9 Pneumonia, unspecified organism; J90 Pleural effusion, not elsewhere classified; E44.1 Mild protein-calorie malnutrition; E87.1 Hypo-osmolality and hyponatremia; J98.11 Atelectasis; Z99.2 Dependence on renal dialysis; I48.91 Unspecified atrial fibrillation; E11.22 Type 2 diabetes mellitus with diabetic chronic kidney disease; E78.5 Hyperlipidemia, unspecified; Z79.01 Long term (current) use of anticoagulants; Z79.84 Long term (current) use of oral hypoglycemic drugs; Z79.899 Other long term (current) drug therapy; E88.09 Other disorders of plasma-protein metabolism, not elsewhere classified; Z82.49 Family history of ischemic heart disease and other diseases of the circulatory system; Z83.3 Family history of diabetes mellitus; Z87.891 Personal history of nicotine dependence; U09.9 Post COVID-19 condition, unspecified; E11.65 Type 2 diabetes mellitus with hyperglycemia; D50.9 Iron deficiency anemia, unspecified
CPT/HCPCS: 36415; 36600; 71045-TC; 80048-TC; 80076-TC; 82728-TC; 82962-TC; 83540-TC; 83605-TC; 83735-TC; 83880; 84100-TC; 84484-TC; 85025-TC; 85730-TC; 86706; 87040-TC; 87081-TC; 87340; 90935-TC; C9803; G0378; J0360; J1815; J2405; J7030

== ENCOUNTER 2023-11-22 14:58 | Inpatient (IN) | payer MEDICARE, OTHER ==
[~2023-11-22] VITALS: Ht 162.6 cm; Wt 60.5 kg
[2023-11-22 16:54] LABS: BASOPHILS # (AUTO) 0.2 K/uL (0.0-0.2); EOSINOPHILS # (AUTO) 0.5 K/uL (0.0-0.7); HEMATOCRIT 21 % (39-51); HEMOGLOBIN 7.1 g/dL (13.5-17.5); LYMPHOCYTES # (AUTO) 0.6 K/uL (0.8-4.8); LYMPHOCYTES % (AUTO) 15.9 % (20.0-44.0); MEAN CORPUSCULAR HEMOGLOBIN 30 PG (26.0-33.0); MEAN CORPUSCULAR HGB CONC 34 g/dl (31.0-36.0); MEAN CORPUSCULAR VOLUME 89 fL (80-96); MONOCYTES # (AUTO) 0.5 K/uL (0.1-1.30); MONOCYTES % (AUTO) 11.4 % (2.0-12.0); NEUTROPHILS # (AUTO) 2.2 K/uL (1.8-8.9); NEUTROPHILS % (AUTO) 54.7 % (43.0-81.0); PLATELET COUNT (AUTO) 272 K/uL (150-450); RED BLOOD CELL COUNT(AUTO) 2.34 MIL/uL (4.5-6.0)
[2023-11-22 16:58] LABS: CALCIUM, SERUM 9.9 mg/dL (8.5-10.1); CREATININE 6.7 mg/dL (0.6-1.3); POTASSIUM 4.9 mmol/L (3.5-5.1)
[2023-11-22 17:03] LABS: INR 1.06 (0.91-1.10); PARTIAL THROMBOPLASTIN TIME 31.1 SEC (24.3-34.3); PROTHROMBIN TIME 11.2 SECS (9.2-11.1)
[2023-11-22] MEDS ORDERED: NIFE30TA91 PO (17:26)
[2023-11-22] MEDS ORDERED: LINA5TAB PO (17:26)
[2023-11-22] MEDS ORDERED: ESCI5TAB PO (17:26)
[2023-11-22] MEDS ORDERED: MAG HYDROX/AL HYDROX/SIMETH 30 ML UDC PO PRN (18:30)
[2023-11-22] MEDS ORDERED: INSULIN REGULAR, HUMAN 100 UNIT/ML 3 ML VIAL SQ PRN (18:30)
[2023-11-22] MEDS ORDERED: ZOLPIDEM TARTRATE 5 MG TABLET PO PRN (18:30)
[2023-11-22] MEDS ORDERED: ACETAMINOPHEN 325 MG TABLET PO PRN (18:30)
[2023-11-22] MEDS ORDERED: DEXTROSE 50%-WATER 50 ML DISP.SYRIN IV PRN (18:30)
[2023-11-22] MEDS ORDERED: MAGNESIUM HYDROXIDE 30 ML UDC PO PRN (18:30)
[2023-11-22] MEDS ORDERED: Z GUARD REMEDY 4 OZ OINT TP PRN (18:30)
[2023-11-22] MEDS ORDERED: ONDANSETRON HCL/PF 4 MG/2 ML VIAL IVP PRN (18:30)
[2023-11-22 20:30] VITALS: BP 194/75; TEMP 98.1; O2SAT 91
[2023-11-22] MEDS: BLOOD SUGAR DIAGNOSTIC 1 EACH STRIP VI SCH (22:03)
[2023-11-22] MEDS: *INSULIN REGULAR(HUMULIN R)HUM 100 UNIT/ML VIAL SQ PRN (22:05)
[2023-11-23] VITALS (9 sets, daily range): BP systolic 109–185; BP diastolic 49–90; TEMP 97.7–98.6; O2SAT 97–100
[2023-11-23] MEDS: hydrALAZINE HCL IV 20 MG VIAL IV PRN ×2 (01:47→08:13)
[2023-11-23 07:32] LABS: BASOPHILS # (AUTO) 0.2 K/uL (0.0-0.2); BASOPHILS % (AUTO) 3.2 % (0.0-2.0); EOSINOPHILS # (AUTO) 0.5 K/uL (0.0-0.7); EOSINOPHILS % (AUTO) 10.3 % (0.0-6.0); LYMPHOCYTES # (AUTO) 0.6 K/uL (0.8-4.8); LYMPHOCYTES % (AUTO) 11.5 % (20.0-44.0); MEAN CORPUSCULAR HEMOGLOBIN 31 PG (26.0-33.0); MEAN CORPUSCULAR HGB CONC 34 g/dl (31.0-36.0); MEAN CORPUSCULAR VOLUME 89 fL (80-96); MONOCYTES # (AUTO) 0.6 K/uL (0.1-1.30); MONOCYTES % (AUTO) 10.5 % (2.0-12.0); NEUTROPHILS # (AUTO) 3.4 K/uL (1.8-8.9); NEUTROPHILS % (AUTO) 64.5 % (43.0-81.0); PLATELET COUNT (AUTO) 257 K/uL (150-450); RED CELL DISTRIBUTION WIDTH 18.7 % (11.5-15.0); WHITE BLOOD COUNT (AUTO) 5.3 K/uL (4.3-11.0)
[2023-11-23 07:35] LABS: HEMATOCRIT 19 % (39-51)
[2023-11-23 07:39] LABS: HEMOGLOBIN 6.4 g/dL (13.5-17.5)
[2023-11-23 07:52] LABS: CALCIUM, SERUM 9.5 mg/dL (8.5-10.1); MAGNESIUM 2.5 mg/dL (1.8-2.4); PHOSPHORUS 6.6 mg/dL (2.5-4.9)
[2023-11-23 08:10] LABS: CREATININE 8.1 mg/dL (0.6-1.3)
[2023-11-23] MEDS: PANTOPRAZOLE 40 MG TABLET.DR PO SCH (08:11)
[2023-11-23] MEDS: BLOOD SUGAR DIAGNOSTIC 1 EACH STRIP VI SCH ×4 (08:19→21:38)
[2023-11-23] MEDS: *INSULIN REGULAR(HUMULIN R)HUM 100 UNIT/ML VIAL SQ PRN ×2 (08:36→21:43)
[2023-11-23] MEDS ORDERED: EPOETIN ALFA (10,000 UNIT) 10,000 UNIT/ML VIAL SQ SCH (15:00)
[2023-11-23 17:38] LABS: HEMOGLOBIN 7.5 g/dL (13.5-17.5)
[2023-11-23 19:28] LABS: ANISOCYTOSIS 1+; EOSINOPHILS % (MANUAL) 9 % (0-4); LYMPHOCYTES % (MANUAL) 9 % (16-48); MONOCYTES % (MANUAL) 6 % (0-11.0); NEUTROPHILS % (MANUAL) 76 (42-76); PLATELET ESTIMATE ADEQUATE; TARGET CELLS RARE
[2023-11-23 19:29] LABS: HYPOCHROMASIA RARE
[2023-11-23 21:22] LABS: OCCULT BLOOD STOOL NEGATIVE (NEGATIVE)
[2023-11-24] VITALS: BP 139/96; TEMP 98.7; O2SAT 99
[2023-11-24] MEDS: hydrALAZINE HCL IV 20 MG VIAL IV PRN ×2 (00:35→09:49)
[2023-11-24 04:00] VITALS: BP 112/62; TEMP 98.8; O2SAT 100
[2023-11-24 07:09] LABS: BASOPHILS # (AUTO) 0.1 K/uL (0.0-0.2); BASOPHILS % (AUTO) 2.3 % (0.0-2.0); EOSINOPHILS # (AUTO) 0.5 K/uL (0.0-0.7); EOSINOPHILS % (AUTO) 8.4 % (0.0-6.0); HEMATOCRIT 21 % (39-51); HEMOGLOBIN 7.3 g/dL (13.5-17.5); LYMPHOCYTES # (AUTO) 0.6 K/uL (0.8-4.8); LYMPHOCYTES % (AUTO) 9.5 % (20.0-44.0); MEAN CORPUSCULAR HEMOGLOBIN 31 PG (26.0-33.0); MEAN CORPUSCULAR HGB CONC 34 g/dl (31.0-36.0); MEAN CORPUSCULAR VOLUME 89 fL (80-96); MONOCYTES # (AUTO) 0.7 K/uL (0.1-1.30); MONOCYTES % (AUTO) 11.8 % (2.0-12.0); PLATELET COUNT (AUTO) 243 K/uL (150-450); RED BLOOD CELL COUNT(AUTO) 2.39 MIL/uL (4.5-6.0); RED CELL DISTRIBUTION WIDTH 18.2 % (11.5-15.0); WHITE BLOOD COUNT (AUTO) 5.9 K/uL (4.3-11.0)
[2023-11-24 07:47] LABS: CALCIUM, SERUM 9.7 mg/dL (8.5-10.1); CREATININE 5.6 mg/dL (0.6-1.3); MAGNESIUM 2.4 mg/dL (1.8-2.4); PHOSPHORUS 5.5 mg/dL (2.5-4.9); POTASSIUM 4.6 mmol/L (3.5-5.1)
[2023-11-24] MEDS: PANTOPRAZOLE 40 MG TABLET.DR PO SCH (07:57)
[2023-11-24] MEDS: BLOOD SUGAR DIAGNOSTIC 1 EACH STRIP VI SCH ×2 (07:57→12:28)
[2023-11-24 08:00] VITALS: BP 181/75; TEMP 98.6; O2SAT 97
[2023-11-24] MEDS ORDERED: DRONEDARONE HYDROCHLORIDE 400 MG TABLET PO SCH (09:00)
[2023-11-24 09:49] VITALS: BP 181/75
[2023-11-24] MEDS ORDERED: SOD FERRIC GLUC 125 MG in IV NS 0.9% 100 ML IV SCH (14:00)
== END 2023-11-24 12:02 | disposition left against medical advice (07) | DRG 811 ==
LOC: ER 14:58 → TRANSITION 18:26 → TELE1 19:33
PROVIDERS: ADMIT Student in an Organized Health Care Education/Training Program; ATTEND Student in an Organized Health Care Education/Training Program
PROC: 30233N1 Transfusion of Nonautologous Red Blood Cells into Peripheral Vein, Percutaneous Approach (ICD-10-PCS; principal; 2023-11-23)
PROC: 5A1D70Z Performance of Urinary Filtration, Intermittent, Less than 6 Hours Per Day (ICD-10-PCS; 2023-11-23)
DX: D50.9 Iron deficiency anemia, unspecified (principal); N18.6 End stage renal disease; I13.2 Hypertensive heart and chronic kidney disease with heart failure and with stage 5 chronic kidney disease, or end stage renal disease; I50.32 Chronic diastolic (congestive) heart failure; E11.22 Type 2 diabetes mellitus with diabetic chronic kidney disease; I48.91 Unspecified atrial fibrillation; K21.9 Gastro-esophageal reflux disease without esophagitis; M89.8X9 Other specified disorders of bone, unspecified site; Z79.84 Long term (current) use of oral hypoglycemic drugs; Z99.2 Dependence on renal dialysis; E11.40 Type 2 diabetes mellitus with diabetic neuropathy, unspecified
CPT/HCPCS: 36415; 71045-TC; 80048-TC; 82272-TC; 82728-TC; 82962-TC; 83540-TC; 83735-TC; 84100-TC; 85025-TC; 85027-TC; 85730-TC; 86850-TC; 90935-TC; A6403; G0378; J0360; J0885; J1815; J2916; J7030; J7050; P9016

== ENCOUNTER 2024-08-31 22:46 | Inpatient (IN) | payer MEDICARE, OTHER ==
[~2024-08-31] VITALS: Ht 165.1 cm; Wt 47.2 kg
[~2024-08-31 22:46] MED LIST changes: -AMIO200T7 PO; -AMLO-213 PO; -AMLO5TAB4 PO; -APIX5TAB PO; -ATOR10TA PO; +ESCI5TAB PO; +LINA5TAB PO; -METO50TA16 PO; +NIFE30TA91 PO; -PANT40TA2 PO; -SEVE800T8 MT; -SITA50TA PO
[2024-09-01] VITALS: BP 193/92; TEMP 97.9; O2SAT 98
[2024-09-01] MEDS ORDERED: Z GUARD REMEDY 4 OZ OINT TP PRN (01:00)
[2024-09-01] MEDS ORDERED: ONDANSETRON HCL/PF 4 MG/2 ML VIAL IVP PRN (01:00)
[2024-09-01] MEDS: hydrALAZINE HCL IV 20 MG VIAL IV PRN ×2 (01:13→16:39)
[2024-09-01 04:00] VITALS: BP 195/89; TEMP 97.5; O2SAT 96
[2024-09-01 06:49] LABS: ALANINE AMINOTRANSFERASE 9 U/L (12-78); ALKALINE PHOSPHATASE 144 U/L (46-116); ASPARTATE AMINOTRANSFERASE 18 U/L (15-37); BILIRUBIN,TOTAL 1.5 mg/dL (0.2-1.0); CALCIUM, SERUM 9.9 mg/dL (8.5-10.1); CARBON DIOXIDE 26 mmol/L (21-32); CHLORIDE 97 mmol/L (98-107); GLUCOSE 185 mg/dL (74-106); PHOSPHORUS 7.6 mg/dL (2.5-4.9); TOTAL PROTEIN, SERUM 8.4 g/dL (6.4-8.2)
[2024-09-01 06:58] LABS: SODIUM SERUM 137 mmol/L (136-145)
[2024-09-01 07:00] LABS: CHOLESTEROL 104 mg/dL (<200); HDL CHOLESTEROL 58 mg/dL (40-60); LDL 36 mg/dL (0-99); TRIGLYCERIDES 33 mg/dL (30-150)
[2024-09-01 07:04] LABS: CREATININE 9.2 mg/dL (0.6-1.3); POTASSIUM 6.3 mmol/L (3.5-5.1)
[2024-09-01 07:05] LABS: UREA NITROGEN, BLOOD 79 mg/dL (7-18)
[2024-09-01 07:29] LABS: NT-PRO BNP 203258 pg/mL (0-125)
[2024-09-01 08:00] VITALS: BP 190/92; TEMP 97.8; O2SAT 96
[2024-09-01] MEDS: ACETAMINOPHEN 325 MG TABLET PO PRN (08:40)
[2024-09-01 12:00] VITALS: BP 190/83; TEMP 98.3; O2SAT 96
[2024-09-01 12:03] LABS: BASOPHILS # (AUTO) 0.1 K/uL (0.0-0.2); BASOPHILS % (AUTO) 1.3 % (0.0-2.0); EOSINOPHILS # (AUTO) 0.1 K/uL (0.0-0.7); EOSINOPHILS % (AUTO) 0.8 % (0.0-6.0); HEMATOCRIT 31 % (39-51); HEMOGLOBIN 9.9 g/dL (13.5-17.5); LYMPHOCYTES # (AUTO) 0.5 K/uL (0.8-4.8); LYMPHOCYTES % (AUTO) 5.2 % (20.0-44.0); MEAN CORPUSCULAR HEMOGLOBIN 27 PG (26.0-33.0); MEAN CORPUSCULAR HGB CONC 32 g/dl (31.0-36.0); MEAN CORPUSCULAR VOLUME 83 fL (80-96); MONOCYTES # (AUTO) 1.3 K/uL (0.1-1.30); MONOCYTES % (AUTO) 14.3 % (2.0-12.0); NEUTROPHILS % (AUTO) 78.4 % (43.0-81.0); PLATELET COUNT (AUTO) 169 K/uL (150-450)
[2024-09-01 16:00] VITALS: BP 207/85; TEMP 98.3; O2SAT 96
[2024-09-01] MEDS: ZOLPIDEM TARTRATE 5 MG TABLET PO PRN (21:54)
[2024-09-01 22:00] VITALS: BP 138/65; TEMP 98.4; O2SAT 95
[2024-09-02] VITALS: BP 170/104; TEMP 98.4
[2024-09-02 04:00] VITALS: BP 194/90; TEMP 98.4; O2SAT 96
[2024-09-02 06:48] LABS: BASOPHILS # (AUTO) 0.2 K/uL (0.0-0.2); BASOPHILS % (AUTO) 1.9 % (0.0-2.0); EOSINOPHILS # (AUTO) 0.2 K/uL (0.0-0.7); HEMATOCRIT 30 % (39-51); LYMPHOCYTES # (AUTO) 0.5 K/uL (0.8-4.8); LYMPHOCYTES % (AUTO) 6.2 % (20.0-44.0); MEAN CORPUSCULAR HEMOGLOBIN 27 PG (26.0-33.0); MEAN CORPUSCULAR HGB CONC 33 g/dl (31.0-36.0); MEAN CORPUSCULAR VOLUME 82 fL (80-96); MONOCYTES % (AUTO) 11.9 % (2.0-12.0); NEUTROPHILS # (AUTO) 6.8 K/uL (1.8-8.9); PLATELET COUNT (AUTO) 166 K/uL (150-450); RED BLOOD CELL COUNT(AUTO) 3.71 MIL/uL (4.5-6.0); RED CELL DISTRIBUTION WIDTH 19.3 % (11.5-15.0); WHITE BLOOD COUNT (AUTO) 8.7 K/uL (4.3-11.0)
[2024-09-02 07:02] LABS: CALCIUM, SERUM 10.1 mg/dL (8.5-10.1); CREATININE 6.7 mg/dL (0.6-1.3); MAGNESIUM 2.4 mg/dL (1.8-2.4); PHOSPHORUS 6.9 mg/dL (2.5-4.9); POTASSIUM 5.1 mmol/L (3.5-5.1)
[2024-09-02 08:00] VITALS: BP 179/81; TEMP 98.4; O2SAT 98
[2024-09-02 08:41] LABS: THYROID STIMULATING HORMONE 0.06 uIU/mL (0.358-3.74)
[2024-09-02 09:07] LABS: PLATELET ESTIMATE ADEQUATE
[2024-09-02 09:10] LABS: ANISOCYTOSIS 1+; TARGET CELLS 1+
[2024-09-02 09:13] LABS: LYMPHOCYTES % (MANUAL) 5 % (16-48); MONOCYTES % (MANUAL) 7 % (0-11.0); NEUTROPHILS % (MANUAL) 87 (42-76)
[2024-09-02] MEDS: NIFEdipine XL (30MG) 30 MG TAB PO SCH (09:20)
[2024-09-02] MEDS: AMLODIPINE BESYLATE 5 MG TABLET PO SCH (09:21)
[2024-09-02] MEDS: hydrALAZINE HCL 50 MG TABLET PO SCH (09:21)
[2024-09-02 12:00] VITALS: BP 183/86; TEMP 97.9; O2SAT 100
[2024-09-02 13:02] VITALS: BP 148/67; TEMP 98.2
[2024-09-02] MEDS ORDERED: NIFE90TA2 PO (17:15)
[2024-09-02] MEDS ORDERED: AMLO5TAB4 PO (17:15)
[2024-09-03 02:07] LABS: HEPATITIS B SURFACE AB Reactive (.)
== END 2024-09-02 16:44 | disposition home or self-care (01) | DRG 280 ==
LOC: TELE1 09-01 00:32
PROVIDERS: ADMIT Nurse Practitioner Acute Care; ATTEND Nurse Practitioner Acute Care
PROC: 5A1D70Z Performance of Urinary Filtration, Intermittent, Less than 6 Hours Per Day (ICD-10-PCS; principal; 2024-09-01)
DX: I13.2 Hypertensive heart and chronic kidney disease with heart failure and with stage 5 chronic kidney disease, or end stage renal disease (principal); E43 Unspecified severe protein-calorie malnutrition; I21.4 Non-ST elevation (NSTEMI) myocardial infarction; I50.31 Acute diastolic (congestive) heart failure; N18.6 End stage renal disease; R64 Cachexia; Z68.1 Body mass index [BMI] 19.9 or less, adult; I16.0 Hypertensive urgency; E11.9 Type 2 diabetes mellitus without complications; E11.40 Type 2 diabetes mellitus with diabetic neuropathy, unspecified; E11.22 Type 2 diabetes mellitus with diabetic chronic kidney disease; J44.9 Chronic obstructive pulmonary disease, unspecified; Z99.2 Dependence on renal dialysis; Z99.81 Dependence on supplemental oxygen; D63.1 Anemia in chronic kidney disease; I48.91 Unspecified atrial fibrillation; Z98.890 Other specified postprocedural states; Z82.49 Family history of ischemic heart disease and other diseases of the circulatory system; Z87.891 Personal history of nicotine dependence; Z83.3 Family history of diabetes mellitus; Z80.9 Family history of malignant neoplasm, unspecified; Z79.84 Long term (current) use of oral hypoglycemic drugs; E87.5 Hyperkalemia
CPT/HCPCS: 36415; 71045-TC; 80048-TC; 80061-TC; 80076-TC; 82962-TC; 83735-TC; 83880; 84100-TC; 84439-TC; 84443-TC; 84484-TC; 85025-TC; 86706; 87340; 90935-TC; 93307-TC; G0378; J0360